=== PATIENT | male | born 1975 | race Caucasian/White ===

== ENCOUNTER 2017-01-15 10:28 | Inpatient (IN) | payer OTHER ==
[2017-01-15 11:45] VITALS: BMI 22.8
--- NOTE | 2017-01-15 13:39 | HP ---
CIWA Score - CIWA Score Nausea/Vomitin Muscle Tremors: 3 Anxiety: 3 Agitation: 3 Paroxysmal Sweats: 2 Orientation: 0-Oriented Tacttile Disturbances: 2-Mild Itch/Numbness/Burn Auditory Disturbances: 2-Mild Harshness/Frighten Visual Disturbances: 2-Mild Sensitivity Headache: 2-Mild CIWA-Ar Total Score: 22 Admission ROS BHS - HPI Chief Complaint: i need help to stop using alcohol,cocaine,heroin,mmtp 40 mgs/day,last medicated today Allergies/Adverse Reactions: Allergies Allergy/AdvReac Type Severity Reaction Status Date / Time shellfish derived Allergy Severe Difficulty Verified 02/04/16 16:30 Breathing No Known Drug Allergies Allergy Verified 02/04/16 17:07 History of Present Illness: this 41 years old male with alcohol,cocaine,heroin dependence,mmtp 40 mgs/day, last medicated today, last detox [facility] 02/10 anxiety and depression no significant period of sobriety Exam Limitations: No Limitations - Ebola screening Have you traveled outside of the country in the last 21 days: No Have you had contact with anyone from an Ebola affected area: No Have you been sick,other than usual withdrawal symptoms: No Do you have a fever: No - Review of Systems Constitutional: Chills, Diaphoresis, Loss of Appetite, Malaise, Night Sweats, Changes in sleep, Unintentional Wgt. Loss EENT: reports: Tearing, Nose Congestion Respiratory: reports: No Symptoms reported Cardiac: reports: Palpitations GI: reports: Diarrhea, Nausea, Poor Appetite, Vomiting : reports: No Symptoms Reported Musculoskeletal: reports: Back Pain, Joint Pain, Muscle Pain Integumentary: reports: Dryness Neuro: reports: Headache, Tremors Endocrine: reports: No Symptoms Reported Hematology: reports: No Symptoms Reported Psychiatric: reports: No Sypmtoms Reported, Judgement Intact, Mood/Affect Appropiate, Anxious, Depressed Patient History - Patient Medical History Hx Anemia: No Hx Asthma: No Hx Chronic Obstructive Pulmonary Disease (COPD): No Hx Cancer: No Hx Cardiac Disorders: No Hx Congestive Heart Failure: No Hx Hypertension: No Hx Hypercholesterolemia: No Hx Pacemaker: No HX Cerebrovascular Accident: No Hx Seizures: No Hx Dementia: No Hx Diabetes: No Hx Gastrointestinal Disorders: No Hx Liver Disease: No Hx Genitourinary Disorders: No Hx Sexually Transmitted Disorders: No Hx Renal Disease (ESRD): No Hx Thyroid Disease: No Hx Human Immunodeficiency Virus (HIV): No ( NEGATIVE LAST TESTED) Hx Hepatitis C: Yes Hx Depression: Yes (anxiety) Hx Suicide Attempt: No Hx Bipolar Disorder: No Hx Schizophrenia: No Other Medical History: no suicidal,no homicidal - Patient Surgical History Past Surgical History: No Hx Neurologic Surgery: No Hx Cataract Extraction: No Hx Cardiac Surgery: No Hx Lung Surgery: No Hx Breast Surgery: No Hx Breast Biopsy: No Hx Abdominal Surgery: No Hx Appendectomy: No Hx Cholecystectomy: No Hx Genitourinary Surgery: No Hx Section: No Hx Orthopedic Surgery: No Anesthesia Reaction: No - PPD History Previous Implant?: Yes Documented Results: Negative w/proof Implanted On Prior [facility] Admission?: No Date: 01/26/16 Results: 0 mm PPD to be Administered?: No - Smoking Cessation Smoking history: Current every day smoker Have you smoked in the past 12 months: Yes Aproximately how many cigarettes per day: 10 Cigars Per Day: 10 Hx Chewing Tobacco Use: No Initiated information on smoking cessation: Yes 'Breaking Loose' booklet given: 01/15/17 - Substance & Tx. History Hx Alcohol Use: Yes Hx Substance Use: Yes Substance Use Type: Alcohol, Cocaine, Opiates Hx Substance Use Treatment: Yes (02/10 [facility]) - Substances Abused Alcohol Route: Oral Frequency: Daily Amount used: 1/5th of vodka Age of first use: 14 Date of Last Use: 01/14/17 Cocaine Route: Injection Frequency: Daily Amount used: 20$ Age of first use: 19 Date of Last Use: 01/15/17 Heroin Route: Injection Frequency: Daily Amount used: 2 bags Age of first use: 17 Date of Last Use: 01/14/17 Family Disease History - Family Disease History Family History: Denies Admission Physical Exam BHS - Vital Signs Vital Signs: Vital Signs - 24 hr 01/15/17 11:39 Temperature 97.5 F L Pulse Rate 84 Respiratory 20 Rate Blood Pressure 125/74 - Physical General Appearance: Yes: Moderate Distress, Tremorous, Irritable, Sweating, Anxious HEENTM: Yes: Normal ENT Inspection, GEOFF, Pharynx Normal Respiratory: Yes: Lungs Clear, Normal Breath Sounds, No Respiratory Distress Neck: Yes: Within Normal Limits, Supple, Trachea in good position Breast: Yes: Within Normal Limits Cardiology: Yes: Within Normal Limits, Regular Rhythm, Regular Rate, S1, S2 Abdominal: Yes: Within Normal Limits, Normal Bowel Sounds, Non Tender, Flat, Soft Genitourinary: Yes: Within Normal Limits Back: Yes: Normal Inspection, Muscle Spasm Musculoskeletal: Yes: Back pain, Joint Stiffness, Muscle Pain Extremities: Yes: Within Normal Limits, Normal Range of Motion, Tremors Neurological: Yes: [employer] II-XII NML intact, Fully Oriented, Alert, Motor Strength 5/5 Integumentary: Yes: Dry Lymphatic: Yes: Within Normal Limits - Diagnostic (1) Alcohol dependence with uncomplicated withdrawal Current Visit: No Status: Chronic (2) Cocaine dependence Current Visit: No Status: Chronic Qualifiers: Substance use status: uncomplicated Qualified Code(s): F14.20 - Cocaine dependence, uncomplicated (3) Hepatitis C Current Visit: No Status: Chronic Qualifiers: Viral hepatitis chronicity: chronic Hepatic coma status: without hepatic coma Qualified Code(s): B18.2 - Chronic viral hepatitis C (4) Heroin abuse Current Visit: No Status: Chronic (5) Methadone maintenance therapy patient Current Visit: No Status: Chronic (6) Nicotine dependence Current Visit: No Status: Chronic Qualifiers: Nicotine product type: cigarettes Substance use status: uncomplicated Qualified Code(s): F17.210 - Nicotine dependence, cigarettes, uncomplicated (7) Weight loss Current Visit: Yes Status: Acute (8) Anxiety and depression Current Visit: Yes Status: Acute Cleared for Admission [facility] - Detox or Rehab [facility] Level of Care: Medically Managed Detox Regimen/Protocol: Librium [facility] Breath Alcohol Content Breath Alcohol Content: 0 Urine Drug Screen - Results Drug Screen Negative: No Urine Drug Screen Results: ARABELLA-Cocaine, OPI-Opiates, MTD-Methadone
[2017-01-15] MEDS ORDERED: MAGNESIUM HYDROX 2400MG/30ML ORAL SUSPENSION 30 ML CUP PO PRN (13:49)
[2017-01-15] MEDS ORDERED: LOPERAMIDE HCL 2 MG CAPSULE PO PRN (13:49)
[2017-01-15] MEDS ORDERED: ACETAMINOPHEN 325 MG TABLET (FP) PO PRN (13:49)
[2017-01-15] MEDS ORDERED: chlordiazePOXIDE HCL 25 MG CAPSULE PO PRN (13:49)
[2017-01-15] MEDS ORDERED: MAGNESIUM CITRATE 300 ML BOTTLE PO PRN (13:49)
[2017-01-15] MEDS ORDERED: hydrOXYzine PAMOATE 50 MG CAPSULE (FP) PO PRN (13:49)
[2017-01-15] MEDS ORDERED: IBUPROFEN 400 MG TABLET (FP) PO PRN (13:49)
[2017-01-15] MEDS ORDERED: P-EPHED 60MG/TRIPROLIDI 2.5MG TABLET PO PRN (13:49)
[2017-01-15] MEDS ORDERED: guaiFENesin/D-METHORPHAN HB 10 ML UNIT-DOSE CUPS PO PRN (13:49)
[2017-01-15] MEDS ORDERED: chlordiazePOXIDE HCL 25 MG CAPSULE PO ONE (13:49)
[2017-01-15] MEDS ORDERED: MENTHOL/PHENOL 1 EACH UD MM PRN (13:49)
[2017-01-15] MEDS: NICOTINE 21 MG/24 HOURS TOPICAL PATCH TD SCH (14:29)
[2017-01-15] MEDS: chlordiazePOXIDE HCL 25 MG CAPSULE PO SCH ×2 (17:55→22:08)
[2017-01-15 18:12] LABS: URINE APPEARANCE TURBID; URINE BILIRUBIN NEGATIVE (NEGATIVE); URINE BLOOD NEGATIVE (NEGATIVE); URINE COLOR YELLOW; URINE GLUCOSE (UA) NEGATIVE (NEGATIVE); URINE KETONE NEGATIVE (NEGATIVE); URINE LEUK ESTERASE NEGATIVE (NEGATIVE); URINE NITRITE NEGATIVE (NEGATIVE); URINE PROTEIN NEGATIVE (NEGATIVE); URINE UROBILINOGEN NEGATIVE E.U./dl (0.2-1.0)
[2017-01-15] MEDS: THIAMINE HCL 100 MG TABLET (FP) PO SCH (22:08)
[2017-01-15] MEDS: diphenhydrAMINE HCL 50 MG CAPSULE PO PRN (22:09)
[2017-01-16] MEDS: chlordiazePOXIDE HCL 25 MG CAPSULE PO SCH ×4 (06:18→22:05)
[2017-01-16] MEDS ORDERED: METHADONE HCL 40 MG DISPERSABLE TABLET PO ONE (08:30)
[2017-01-16 10:02] LABS: ALBUMIN 3.1 g/dl (3.4-5.0); ANION GAP 9 (8-16); CALCIUM 8.4 mg/dL (8.5-10.1); CO2 25 mmol/L (21-32); GLUCOSE,RANDOM 79 mg/dL (74-106)
[2017-01-16 10:08] LABS: ALK PHOS 157 U/L (45-117); BILIRUBIN,TOTAL 0.5 mg/dL (0.2-1.0); COCKROFT - GAULT 83.33; CREATININE 1.1 mg/dL (0.7-1.3); SGPT/ALT 23 U/L (12-78); TOT PROT 6.4 g/dl (6.4-8.2)
[2017-01-16] MEDS: PRENATAL VITAMINS W/ FOLIC ACID TABLET (FP) PO SCH (10:14)
[2017-01-16] MEDS: NICOTINE 21 MG/24 HOURS TOPICAL PATCH TD SCH (10:14)
[2017-01-16 10:17] LABS: SGOT/AST 28 U/L (15-37)
--- NOTE | 2017-01-16 10:30 | EKG ---
Test Reason : Blood Pressure : / mmHG Vent. Rate : 058 BPM Atrial Rate : 058 BPM P-R Int : 118 ms QRS Dur : 084 ms QT Int : 448 ms P-R-T Axes : 026 067 050 degrees QTc Int : 439 ms SINUS BRADYCARDIA OTHERWISE NORMAL ECG NO PREVIOUS ECGS AVAILABLE Confirmed by MD BREEZY, REGINALDO ([id number]) on 01/16/2017 10:30:09 AM Referred By: Confirmed By:REGINALDO TIJERINA MD
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
--- NOTE | 2017-01-16 12:39 | PN ---
S CIWA - CIWA Score Nausea/Vomitin Muscle Tremors: 4-Moderate,w/Arms Extend Anxiety: 4-Mod. Anxious/Guarded Agitation: 1-Slight > Activity Paroxysmal Sweats: 3 Orientation: 0-Oriented Tacttile Disturbances: 3-Moderate Itch/Numb/Burn Auditory Disturbances: 0-None Visual Disturbances: 2-Mild Sensitivity Headache: 0-None Present CIWA-Ar Total Score: 19 BHS Progress Note (SOAP) Subjective: Tremors, Interrupted Sleep, Lower Back Ache, Sweating, Diarrhea. Objective: PT. A & O X 3. 01/16/17 12:37 Vital Signs Temperature 97.1 F L 01/16/17 09:52 Pulse Rate 72 01/16/17 09:52 Respiratory Rate 18 01/16/17 09:52 Blood Pressure 118/83 01/16/17 09:52 O2 Sat by Pulse Oximetry (%) Laboratory Tests 01/15/17 01/16/17 01/16/17 17:00 07:15 07:15 Sodium 139 Potassium 4.7 D Chloride 105 Carbon Dioxide 25 Anion Gap 9 BUN 19 H Creatinine 1.1 Creat Clearance w eGFR > 60 Random Glucose 79 D Calcium 8.4 L Total Bilirubin 0.5 AST 28 D ALT 23 D Alkaline Phosphatase 157 H Total Protein 6.4 Albumin 3.1 L Urine Color Yellow Urine Appearance Turbid Urine pH 5.0 Ur Specific [place] 1.025 Urine Protein Negative Urine Glucose (UA) Negative Urine Ketones Negative Urine Blood Negative Urine Nitrite Negative Urine Bilirubin Negative Urine Urobilinogen Negative Ur Leukocyte Esterase Negative RPR Titer Nonreactive LABS NOTED. Assessment: 01/16/17 12:38 WITHDRAWAL SYMPTOMS. Plan: CONTINUE DETOX. INCREASE PO FLUID INTAKE.
[2017-01-16 14:07] LABS: MCH 30.4 pg (25.7-33.7); MCHC 32.6 g/dl (32.0-35.9); MEAN CELL VOLUME 93.3 fl (80-96); MEAN PLT VOLUME 8.2 fl (7.5-11.1); PLATELET COUNT 204 K/MM3 (134-434); RDW 13.7 % (11.9-15.9); WHITE BLOOD COUNT 5.6 K/mm3 (4.0-10.0)
[2017-01-16] MEDS: THIAMINE HCL 100 MG TABLET (FP) PO SCH (22:05)
[2017-01-16] MEDS: diphenhydrAMINE HCL 50 MG CAPSULE PO PRN (22:05)
[2017-01-17] MEDS: CYCLOBENZAPRINE HCL 10 MG TABLET (FP) PO PRN (05:45)
[2017-01-17] MEDS: METHADONE HCL 40 MG DISPERSABLE TABLET PO SCH (05:45)
[2017-01-17] MEDS: chlordiazePOXIDE HCL 25 MG CAPSULE PO SCH ×2 (05:45→10:14)
[2017-01-17] MEDS: PRENATAL VITAMINS W/ FOLIC ACID TABLET (FP) PO SCH (10:14)
[2017-01-17] MEDS: NICOTINE 21 MG/24 HOURS TOPICAL PATCH TD SCH (10:14)
--- NOTE | 2017-01-17 11:52 | PN ---
S CIWA - CIWA Score Nausea/Vomitin-No Nausea/No Vomiting Muscle Tremors: 4-Moderate,w/Arms Extend Anxiety: 4-Mod. Anxious/Guarded Agitation: 4-Moderately Restless Paroxysmal Sweats: 3 Orientation: 0-Oriented Tacttile Disturbances: 0-None Auditory Disturbances: 0-None Visual Disturbances: 0-None Headache: 0-None Present CIWA-Ar Total Score: 15 BHS Progress Note (SOAP) Subjective: Anxiety,tremors,sweating,interrupted sleep,restless Objective: 01/17/17 11:51 Vital Signs - 8 hr 01/17/17 01/17/17 06:23 09:55 Temperature 97.2 F L 96.4 F L Pulse Rate 79 84 Respiratory 18 18 Rate Blood Pressure 115/75 104/74 Laboratory Tests 01/15/17 01/16/17 01/16/17 17:00 07:15 07:15 WBC RBC Hgb Hct MCV MCHC RDW Plt Count MPV Sodium 139 Potassium 4.7 D Chloride 105 Carbon Dioxide 25 Anion Gap 9 BUN 19 H Creatinine 1.1 Creat Clearance w eGFR > 60 Random Glucose 79 D Calcium 8.4 L Total Bilirubin 0.5 AST 28 D ALT 23 D Alkaline Phosphatase 157 H Total Protein 6.4 Albumin 3.1 L Urine Color Yellow Urine Appearance Turbid Urine pH 5.0 Ur Specific [place] 1.025 Urine Protein Negative Urine Glucose (UA) Negative Urine Ketones Negative Urine Blood Negative Urine Nitrite Negative Urine Bilirubin Negative Urine Urobilinogen Negative Ur Leukocyte Esterase Negative RPR Titer Nonreactive 01/16/17 09:12 WBC 5.6 D RBC 4.74 Hgb 14.4 Hct 44.2 MCV 93.3 MCHC 32.6 RDW 13.7 Plt Count 204 MPV 8.2 Sodium Potassium Chloride Carbon Dioxide Anion Gap BUN Creatinine Creat Clearance w eGFR Random Glucose Calcium Total Bilirubin AST ALT Alkaline Phosphatase Total Protein Albumin Urine Color Urine Appearance Urine pH Ur Specific [place] Urine Protein Urine Glucose (UA) Urine Ketones Urine Blood Urine Nitrite Urine Bilirubin Urine Urobilinogen Ur Leukocyte Esterase RPR Titer labs noted Assessment: 01/17/17 11:51 Withdrawal sx. Plan: Continue detox
[2017-01-17] MEDS: chlordiazePOXIDE 5 MG CAPSULE PO SCH ×2 (16:58→22:04)
[2017-01-17] MEDS: MAG HYDROX/AL HYDROX/SIMETH 30 ML UNIT-DOSE CUP PO PRN (20:22)
[2017-01-17] MEDS: THIAMINE HCL 100 MG TABLET (FP) PO SCH (22:04)
[2017-01-17] MEDS: diphenhydrAMINE HCL 50 MG CAPSULE PO PRN (22:04)
[2017-01-18] MEDS: MAG HYDROX/AL HYDROX/SIMETH 30 ML UNIT-DOSE CUP PO PRN (02:56)
[2017-01-18] MEDS: METHADONE HCL 40 MG DISPERSABLE TABLET PO SCH (05:30)
[2017-01-18] MEDS: chlordiazePOXIDE 5 MG CAPSULE PO SCH ×2 (05:30→10:10)
[2017-01-18] MEDS: CYCLOBENZAPRINE HCL 10 MG TABLET (FP) PO PRN (05:30)
[2017-01-18] MEDS: PRENATAL VITAMINS W/ FOLIC ACID TABLET (FP) PO SCH (10:10)
[2017-01-18] MEDS: NICOTINE 21 MG/24 HOURS TOPICAL PATCH TD SCH (10:11)
--- NOTE | 2017-01-18 10:59 | PN ---
BHS Progress Note (SOAP) Subjective: ANXIETY,SWEATS. Objective: 01/18/17 10:59 Vital Signs Temperature 96.0 F L 01/18/17 09:31 Pulse Rate 80 01/18/17 09:31 Respiratory Rate 20 01/18/17 09:31 Blood Pressure 118/82 01/18/17 09:31 O2 Sat by Pulse Oximetry (%) Assessment: 01/18/17 10:59 WITHDRAWAL SX Plan: CONTINUE DETOX
[2017-01-18] MEDS: chlordiazePOXIDE HCL 10 MG CAPSULE PO SCH ×2 (16:57→22:05)
[2017-01-18] MEDS: THIAMINE HCL 100 MG TABLET (FP) PO SCH (22:05)
[2017-01-18] MEDS: diphenhydrAMINE HCL 50 MG CAPSULE PO PRN (22:05)
[2017-01-19] MEDS: MAG HYDROX/AL HYDROX/SIMETH 30 ML UNIT-DOSE CUP PO PRN (02:58)
[2017-01-19] MEDS: METHADONE HCL 40 MG DISPERSABLE TABLET PO SCH (05:33)
[2017-01-19] MEDS: chlordiazePOXIDE HCL 10 MG CAPSULE PO SCH (05:33)
[2017-01-19] MEDS: CYCLOBENZAPRINE HCL 10 MG TABLET (FP) PO PRN (05:33)
--- NOTE | 2017-01-19 09:12 | DS ---
[facility] Detox Discharge Summary Admission Date: 01/15/17 Discharge Date: 01/19/17 - History Present History: Alcohol Dependence, MMTP Additional Comments: DETOX COMPLETED. ALERT O X 3. NAD. Pertinent Past History: HEP C - Physical Exam Results Vital Signs: Vital Signs Temperature 97.0 F L 01/19/17 06:23 Pulse Rate 74 01/19/17 06:23 Respiratory Rate 16 01/19/17 06:23 Blood Pressure 105/72 01/19/17 06:23 O2 Sat by Pulse Oximetry (%) Pertinent Admission Physical Exam Findings: WITHDRAWAL SX Laboratory Last Values WBC 5.6 K/mm3 (4.0-10.0) D 01/16/17 09:12 RBC 4.74 M/mm3 (4.00-5.60) 01/16/17 09:12 Hgb 14.4 GM/dL (11.7-16.9) 01/16/17 09:12 Hct 44.2 % (35.4-49) 01/16/17 09:12 MCV 93.3 fl (80-96) 01/16/17 09:12 MCHC 32.6 g/dl (32.0-35.9) 01/16/17 09:12 RDW 13.7 % (11.9-15.9) 01/16/17 09:12 Plt Count 204 K/MM3 (134-434) 01/16/17 09:12 MPV 8.2 fl (7.5-11.1) 01/16/17 09:12 Sodium 139 mmol/L (136-145) 01/16/17 07:15 Potassium 4.7 mmol/L (3.5-5.1) D 01/16/17 07:15 Chloride 105 mmol/L (98-107) 01/16/17 07:15 Carbon Dioxide 25 mmol/L (21-32) 01/16/17 07:15 Anion Gap 9 (8-16) 01/16/17 07:15 BUN 19 mg/dL (7-18) H 01/16/17 07:15 Creatinine 1.1 mg/dL (0.7-1.3) 01/16/17 07:15 Creat Clearance w eGFR > 60 (>60) 01/16/17 07:15 Random Glucose 79 mg/dL (74-106) D 01/16/17 07:15 Calcium 8.4 mg/dL (8.5-10.1) L 01/16/17 07:15 Total Bilirubin 0.5 mg/dL (0.2-1.0) 01/16/17 07:15 AST 28 U/L (15-37) D 01/16/17 07:15 ALT 23 U/L (12-78) D 01/16/17 07:15 Alkaline Phosphatase 157 U/L (45-117) H 01/16/17 07:15 Total Protein 6.4 g/dl (6.4-8.2) 01/16/17 07:15 Albumin 3.1 g/dl (3.4-5.0) L 01/16/17 07:15 Urine Color Yellow 01/15/17 17:00 Urine Appearance Turbid 01/15/17 17:00 Urine pH 5.0 (5.0-8.0) 01/15/17 17:00 Ur Specific [place] 1.025 (1.005-1.025) 01/15/17 17:00 Urine Protein Negative (NEGATIVE) 01/15/17 17:00 Urine Glucose (UA) Negative (NEGATIVE) 01/15/17 17:00 Urine Ketones Negative (NEGATIVE) 01/15/17 17:00 Urine Blood Negative (NEGATIVE) 01/15/17 17:00 Urine Nitrite Negative (NEGATIVE) 01/15/17 17:00 Urine Bilirubin Negative (NEGATIVE) 01/15/17 17:00 Urine Urobilinogen Negative E.U./dl (0.2-1.0) 01/15/17 17:00 Ur Leukocyte Esterase Negative (NEGATIVE) 01/15/17 17:00 RPR Titer Nonreactive (NONREACTIVE) 01/16/17 07:15 - Treatment Hospital Course: Detox Protocol Followed, Detoxed Safely, Responded well, Discharged Condition Good - Medication Discharge Medications: Ambulatory Orders Trazodone HCl [Desyrel -] 50 mg PO HS #30 tablet 02/18/16 - Diagnosis (1) Alcohol dependence with uncomplicated withdrawal Current Visit: Yes Status: Acute (2) Hepatitis C Current Visit: Yes Status: Chronic Qualifiers: Viral hepatitis chronicity: chronic Hepatic coma status: without hepatic coma Qualified Code(s): B18.2 - Chronic viral hepatitis C (3) Methadone maintenance therapy patient Current Visit: Yes Status: Chronic (4) Nicotine dependence Current Visit: Yes Status: Acute Qualifiers: Nicotine product type: cigarettes Substance use status: in withdrawal Qualified Code(s): F17.213 - Nicotine dependence, cigarettes, with withdrawal (5) Substance induced mood disorder Current Visit: Yes Status: Acute (6) Substance-induced sleep disorder Current Visit: Yes Status: Acute - AMA Did Patient Leave Against Medical Advice: No
[2017-01-19 09:25] VITALS: BP 113/75; PULSE 77; TEMP 97.5
== END 2017-01-19 09:06 | disposition home or self-care (01) | DRG 773 ==
LOC: YASAS 10:28 → Y3N 13:32
PROVIDERS: ADMIT Internal Medicine; ATTEND Internal Medicine
PROC: HZ2ZZZZ Detoxification Services for Substance Abuse Treatment (ICD-10-PCS; principal; 2017-01-15)
DX: F10.230 Alcohol dependence with withdrawal, uncomplicated (principal); F11.20 Opioid dependence, uncomplicated; F17.213 Nicotine dependence, cigarettes, with withdrawal; F19.24 Other psychoactive substance dependence with psychoactive substance-induced mood disorder; F19.282 Other psychoactive substance dependence with psychoactive substance-induced sleep disorder; F41.8 Other specified anxiety disorders; B18.2 Chronic viral hepatitis C; H11.31 Conjunctival hemorrhage, right eye; Z87.898 Personal history of other specified conditions; Z59.0 Homelessness
CPT/HCPCS: 36415; 80053; 81003; 85027; 86593; 93005; 93010

== ENCOUNTER 2018-05-17 14:17 | Inpatient (IN) | payer OTHER ==
[2018-05-17 15:46] VITALS: BMI 26.4
--- NOTE | 2018-05-17 17:29 | HP ---
COWS - Scale Resting Pulse: 0= CO 80 or Below Sweatin=Flushed/Facial Moisture Restless Observation: 1= Difficult to Sit Still Pupil Size: 1= Pupils >than Normal Bone or Joint Aches: 1= Mild Discomfort Runny Nose/ Eye Tearin= Runny Nose/Eyes GI Upset > 30mins: 1= Stomach Cramp Tremor Observation: 1= Tremor [place], Not Seen Yawning Observation: 1= 1-2x During Session Anxiety or Irritability: 2=Irritable/Anxious Goose Flesh Skin: 0=Smooth Skin COWS Score: 12 CIWA Score - CIWA Score Nausea/Vomitin-No Nausea/No Vomiting Muscle Tremors: 2 Anxiety: 3 Agitation: 2 Paroxysmal Sweats: 2 Orientation: 0-Oriented Tacttile Disturbances: 2-Mild Itch/Numbness/Burn Auditory Disturbances: 0-None Visual Disturbances: 0-None Headache: 1-Very Mild CIWA-Ar Total Score: 12 Admission ROS S - HPI Chief Complaint: alcohol and opioid withdrawal symptoms Allergies/Adverse Reactions: Allergies Allergy/AdvReac Type Severity Reaction Status Date / Time shellfish derived Allergy Severe Difficulty Verified 05/17/18 16:47 Breathing No Known Drug Allergies Allergy Verified 05/17/18 16:47 History of Present Illness: 43 yo male with hx of nicotine, heroin (IV), alcohol and cocaine dependence. Last detox 2.5 months ago at [facility]. Longest period of sobriety 33 years. Reports was Suboxone therapy 2.5 months ago, and relapsed. PMHX: anxiety and depression. Denies hx of seizures, blackouts or overdose. Exam Limitations: No Limitations - Ebola screening Have you traveled outside of the country in the last 21 days: No Have you had contact with anyone from an Ebola affected area: No Have you been sick,other than usual withdrawal symptoms: No Do you have a fever: No - Review of Systems Constitutional: Chills, Changes in sleep, Weakness EENT: reports: Nose Congestion Respiratory: reports: No Symptoms reported Cardiac: reports: No Symptoms Reported GI: reports: Poor Appetite, Poor Fluid Intake, Indigestion : reports: No Symptoms Reported Musculoskeletal: reports: Other (bilateral foot pain) Integumentary: reports: No Symptoms Reported Neuro: reports: Numbness (left leg) Endocrine: reports: Increased Thirst Hematology: reports: No Symptoms Reported Psychiatric: reports: Orientated x3, Depressed Other Systems: Reviewed and Negative Patient History - Patient Medical History Hx Anemia: No Hx Asthma: No Hx Chronic Obstructive Pulmonary Disease (COPD): No Hx Cancer: No Hx Cardiac Disorders: No Hx Congestive Heart Failure: No Hx Hypertension: No Hx Hypercholesterolemia: No Hx Pacemaker: No HX Cerebrovascular Accident: No Hx Seizures: No Hx Dementia: No Hx Diabetes: No Hx Gastrointestinal Disorders: No Hx Liver Disease: No Hx Genitourinary Disorders: No Hx Sexually Transmitted Disorders: No Hx Renal Disease (ESRD): No Hx Thyroid Disease: No Hx Human Immunodeficiency Virus (HIV): No (0 NEGATIVE LAST TESTED) Hx Hepatitis C: Yes Hx Depression: Yes (anxiety) Hx Suicide Attempt: No Hx Bipolar Disorder: No Hx Schizophrenia: No - Patient Surgical History Past Surgical History: No Hx Neurologic Surgery: No Hx Cataract Extraction: No Hx Cardiac Surgery: No Hx Lung Surgery: No Hx Breast Surgery: No Hx Breast Biopsy: No Hx Abdominal Surgery: No Hx Appendectomy: No Hx Cholecystectomy: No Hx Genitourinary Surgery: No Hx Section: No Hx Orthopedic Surgery: No Anesthesia Reaction: No - PPD History Previous Implant?: Yes Documented Results: Negative w/proof Date: 01/26/16 Results: 0 mm PPD to be Administered?: Yes - Smoking Cessation Smoking history: Current every day smoker Have you smoked in the past 12 months: Yes Aproximately how many cigarettes per day: 20 Cigars Per Day: 10 Hx Chewing Tobacco Use: No Initiated information on smoking cessation: Yes 'Breaking Loose' booklet given: 05/17/18 - Substance & Tx. History Hx Alcohol Use: Yes Hx Substance Use: Yes Substance Use Type: Alcohol, Cocaine, Heroin Hx Substance Use Treatment: Yes (Last detox 2.5 months ago at [facility]) - Substances Abused Alcohol Route: Oral Frequency: Daily Amount used: LIOQUOR- 2 PINTS, BEER-2 SIX PACK Age of first use: 14 Date of Last Use: 05/16/18 Heroin Route: Injection Frequency: Daily Amount used: 10 BAGS Age of first use: 17 Date of Last Use: 05/16/18 Cocaine Route: Injection Frequency: Daily Amount used: 3 - 5 bags Age of first use: 19 Date of Last Use: 05/17/18 Family Disease History - Family Disease History Family Disease History: Diabetes: Mother Admission Physical Exam [facility] - Vital Signs Vital Signs: Vital Signs - 24 hr 05/17/18 15:43 Temperature 97.6 F Pulse Rate 63 Respiratory 18 Rate Blood Pressure 122/79 - Physical General Appearance: Yes: Appropriately Dressed, Mild Distress, Sweating, Anxious HEENTM: Yes: EOMI, Hearing grossly Normal, Normal ENT Inspection, Normocephalic , Normal Voice, GEOFF, Pharynx Normal, Tm's normal Respiratory: Yes: Chest Non-Tender, Lungs Clear, Normal Breath Sounds, No Respiratory Distress, No Accessory Muscle Use Neck: Yes: Within Normal Limits Breast: Yes: Breast Exam Deferred Cardiology: Yes: Regular Rhythm, Regular Rate Abdominal: Yes: Normal Bowel Sounds, Non Tender, Flat, Soft Genitourinary: Yes: Within Normal Limits Back: Yes: Normal Inspection Musculoskeletal: Yes: full range of Motion, Gait Steady, Pelvis Stable Extremities: Yes: Normal Capillary Refill, Normal Inspection, Normal Range of Motion, Non-Tender Neurological: Yes: emery grinder II-XII NML intact, Fully Oriented, Alert, Motor Strength 5/5, Depressed Affect Integumentary: Yes: Normal Color, Warm, Diaphoresis, Track [place] (bilateral forearms, right neck, no infection present) Lymphatic: Yes: Within Normal Limits - Diagnostic (1) Opioid dependence with withdrawal Current Visit: Yes Status: Acute (2) Alcohol dependence with uncomplicated withdrawal Current Visit: Yes Status: Acute (3) Nicotine dependence Current Visit: Yes Status: Acute Qualifiers: Nicotine product type: cigarettes Substance use status: in withdrawal Qualified Code(s): F17.213 - Nicotine dependence, cigarettes, with withdrawal (4) Cocaine dependence Current Visit: Yes Status: Chronic Qualifiers: Substance use status: uncomplicated Qualified Code(s): F14.20 - Cocaine dependence, uncomplicated Cleared for Admission [facility] - Detox or Rehab [facility] Level of Care: Medically Managed Detox Regimen/Protocol: Methadone/Librium [facility] Breath Alcohol Content Breath Alcohol Content: 0 Urine Drug Screen - Results Drug Screen Negative: No Urine Drug Screen Results: ARABELLA-Cocaine, OPI-Opiates, MDMA-Ecstasy, BAR- Barbiturates, FEN-Fentanyl
[2018-05-17] MEDS ORDERED: chlordiazePOXIDE HCL 25 MG CAPSULE PO PRN (17:35)
[2018-05-17] MEDS ORDERED: IBUPROFEN 400 MG TABLET (FP) PO PRN (17:35)
[2018-05-17] MEDS ORDERED: MENTHOL/PHENOL 1 EACH UD MM PRN (17:35)
[2018-05-17] MEDS ORDERED: MAGNESIUM HYDROX 2400MG/30ML ORAL SUSPENSION 30 ML CUP PO PRN (17:35)
[2018-05-17] MEDS ORDERED: guaiFENesin/D-METHORPHAN HB 10 ML UNIT-DOSE CUPS PO PRN (17:35)
[2018-05-17] MEDS ORDERED: LOPERAMIDE HCL 2 MG CAPSULE PO PRN (17:35)
[2018-05-17] MEDS ORDERED: ACETAMINOPHEN 325 MG TABLET (FP) PO PRN (17:35)
[2018-05-17] MEDS ORDERED: MAGNESIUM CITRATE 300 ML BOTTLE PO PRN (17:35)
[2018-05-17] MEDS ORDERED: P-EPHED 60MG/TRIPROLIDI 2.5MG TABLET PO PRN (17:35)
[2018-05-17] MEDS ORDERED: NICOTINE POLACRILEX 2 MG GUM BC PRN (17:35)
[2018-05-17] MEDS ORDERED: METHADONE HCL 10 MG TABLET (FOR DETOX USE ONLY) PO ONE ×2 (19:00→23:00)
[2018-05-17] MEDS ORDERED: chlordiazePOXIDE HCL 25 MG CAPSULE PO ONE (19:00)
[2018-05-17] MEDS ORDERED: METHADONE HCL 10 MG TABLET ONE (21:57)
[2018-05-17] MEDS ORDERED: MELATONIN 5 MG TABLETS PO PRN (22:00)
[2018-05-17] MEDS: THIAMINE HCL 100 MG TABLET (FP) PO SCH (22:57)
[2018-05-17] MEDS: chlordiazePOXIDE HCL 25 MG CAPSULE PO SCH (22:57)
[2018-05-18] MEDS: chlordiazePOXIDE HCL 25 MG CAPSULE PO SCH ×4 (05:38→22:13)
--- NOTE | 2018-05-18 08:01 | EKG ---
Test Reason : Blood Pressure : / mmHG Vent. Rate : 073 BPM Atrial Rate : 073 BPM P-R Int : 128 ms QRS Dur : 086 ms QT Int : 390 ms P-R-T Axes : 036 063 048 degrees QTc Int : 429 ms NORMAL SINUS RHYTHM NORMAL ECG WHEN COMPARED WITH ECG OF 15-JAN-2017 13:40, NO SIGNIFICANT CHANGE WAS FOUND Confirmed by SEVEN CORRIGAN MD ([id number]) on 05/18/2018 8:00:47 AM Referred By: Confirmed By:SEVEN CORRIGAN MD
[2018-05-18] MEDS ORDERED: METHADONE HCL 10 MG TABLET (FOR DETOX USE ONLY) PO SCH (10:00)
[2018-05-18] MEDS: NICOTINE 21 MG/24 HOURS TOPICAL PATCH TD SCH (10:13)
[2018-05-18] MEDS: PRENATAL VITAMINS W/ FOLIC ACID TABLET (FP) PO SCH (10:13)
[2018-05-18 10:15] LABS: HEMATOCRIT 39.9 % (35.4-49); HEMOGLOBIN 13.3 GM/dL (11.7-16.9); MCH 30.8 pg (25.7-33.7); MCHC 33.4 g/dl (32.0-35.9); MEAN CELL VOLUME 92.2 fl (80-96); MEAN PLT VOLUME 8.1 fl (7.5-11.1); PLATELET COUNT 176 K/MM3 (134-434); RBC 4.33 M/mm3 (4.00-5.60); RDW 13.6 % (11.9-15.9); WHITE BLOOD COUNT 3.9 K/mm3 (4.0-10.0)
[2018-05-18 10:51] LABS: ALBUMIN 3.1 g/dl (3.4-5.0); ALK PHOS 97 U/L (45-117); ANION GAP 10 MMOL/L (8-16); BILIRUBIN,TOTAL 0.5 mg/dL (0.2-1); BLOOD UREA NITROGEN 14 mg/dL (7-18); CALCIUM 8.6 mg/dL (8.5-10.1); CHLORIDE 106 mmol/L (98-107); CO2 26 mmol/L (21-32); CREATININE 0.9 mg/dL (0.55-1.3); GLUCOSE,RANDOM 105 mg/dL (74-106); POTASSIUM 3.5 mmol/L (3.5-5.1); SGOT/AST 32 U/L (15-37); SGPT/ALT 43 U/L (13-61); SODIUM 142 mmol/L (136-145)
--- NOTE | 2018-05-18 13:45 | PN ---
[facility] CIWA - CIWA Score Nausea/Vomitin-No Nausea/No Vomiting Muscle Tremors: 3 Anxiety: 4-Mod. Anxious/Guarded Agitation: 3 Paroxysmal Sweats: 1-Minimal Palms Moist Orientation: 0-Oriented Tacttile Disturbances: 0-None Auditory Disturbances: 0-None Visual Disturbances: 0-None Headache: 0-None Present CIWA-Ar Total Score: 11 S COWS - Scale Resting Pulse: 0= [place] 80 or Below Sweatin= Chills/Flushing Restless Observation: 3= Extraneous Movement Pupil Size: 0= Normal to Room Light Bone or Joint Aches: 1= Mild Discomfort Runny Nose/ Eye Tearin= None GI Upset > 30mins: 0= None Tremor Observation of Outstretched Hands: 2= Slight Tremor Visible Yawning Observation: 1= 1-2x During Session Anxiety or Irritability: 2=Irritable/Anxious Goose Flesh Skin: 0=Smooth Skin COWS Score: 10 [facility] Progress Note (SOAP) Subjective: ANXIETY,CHILLS, FATIGUE, INTERMITTENT SLEEP. Objective: 05/18/18 13:44 Vital Signs 05/18/18 05/18/18 06:19 10:15 Temperature 97.4 F L 97.6 F Pulse Rate 58 L 52 L Respiratory 18 18 Rate Blood Pressure 94/60 100/60 Laboratory Tests 05/18/18 05/18/18 07:00 07:00 WBC 3.9 L RBC 4.33 Hgb 13.3 Hct 39.9 MCV 92.2 MCH 30.8 MCHC 33.4 RDW 13.6 Plt Count 176 MPV 8.1 Sodium 142 Potassium 3.5 Chloride 106 Carbon Dioxide 26 Anion Gap 10 BUN 14 Creatinine 0.9 Creat Clearance w eGFR > 60 Random Glucose 105 Calcium 8.6 Total Bilirubin 0.5 AST 32 ALT 43 Alkaline Phosphatase 97 Total Protein 6.0 L Albumin 3.1 L Assessment: 05/18/18 13:44 WITHDRAWAL SX Plan: CONTINUE DETOX INCREASE PO FLUIDS
--- NOTE | 2018-05-18 13:46 | CONSULT ---
[facility] Psychiatric Consult - Data Date of interview: 05/18/18 Admission source: [facility] Identifying data: Readmission to [facility] for this 43 y/o male self- referred for detoxification treatment (alcohol,heroin,cocaine dependence.Admitted to [address] [place] [address].Patient is single,a father of two,homeless, currently unemployed and supported on odd jobs. Substance Abuse History: Confirmed by patient in this interview.Details in current [facility] report : Smoking history: Current every day smoker. Have you smoked in the past 12 months: Yes. Aproximately how many cigarettes per day: 20. Cigars Per Day: 10. Hx Chewing Tobacco Use: No. Initiated information on smoking cessation: Yes. 'Breaking Loose' booklet given: 05/17/18. - Substance & Tx. History. Hx Alcohol Use: Yes. Hx Substance Use: Yes. Substance Use Type : Alcohol, Cocaine, Heroin. Hx Substance Use Treatment: Yes (Last detox 2.5 months ago at [facility].). - Substances Abused. Alcohol. Route: Oral. Frequency: Daily. Amount used: LIOQUOR- 2 PINTS, BEER-2 SIX PACK. Age of first use: 14. Date of Last Use: 05/16/18. Heroin. Route: Injection. Frequency: Daily. Amount used: 10 BAGS. Age of first use: 17. Date of Last Use: 05/16/18. Cocaine. Route: Injection. Frequency: Daily. Amount used: 3 - 5 bags. Age of first use: 19. Date of Last Use: 05/17/18 Medical History: Hepatitis C. Psychiatric History: No reported history of psychiatric hospitalizations.Did use wellbutrin in the past for smoking cessation.Patient endorses a history of anxiety but he never addressed the issue with mental health professionals.Mr Armenta denies history of suicide attempts. Physical/Sexual Abuse/Trauma History: Patient denies. Additional Comment: Urine Drug Screen Results: ARABELLA-Cocaine, OPI-Opiates, MDMA- Ecstasy, BAR-Barbiturates, FEN-Fentanyl.Noted. Mental Status Exam - Mental Status Exam Alert and Oriented to: Time, Place, Person Cognitive Function: Good Patient Appearance: Well Groomed Mood: Nervous, Anxious, Hopeful Affect: Mood Congruent Patient Behavior: Fatigued, Appropriate, Cooperative Speech Pattern: Clear Voice Loudness: Normal Thought Process: Intact, Goal Oriented Thought Disorder: Not Present Hallucinations: Denies Suicidal Ideation: Denies Homicidal Ideation: Denies Insight/Judgement: Poor Sleep: Poorly, Difficulty falling asleep Appetite: Good Muscle strength/Tone: Normal Gait/Station: Normal Psychiatric Findings - Problem List ([place] 1, 2,3) (1) Alcohol dependence with uncomplicated withdrawal Current Visit: Yes Status: Acute (2) Nicotine dependence Current Visit: Yes Status: Acute Qualifiers: Nicotine product type: cigarettes Substance use status: in withdrawal Qualified Code(s): F17.213 - Nicotine dependence, cigarettes, with withdrawal (3) Opioid dependence with withdrawal Current Visit: Yes Status: Acute (4) Cocaine dependence Current Visit: Yes Status: Acute Qualifiers: Substance use status: uncomplicated Qualified Code(s): F14.20 - Cocaine dependence, uncomplicated (5) Substance induced mood disorder Current Visit: Yes Status: Acute (6) Insomnia Current Visit: Yes Status: Acute - Initial Treatment Plan Initial Treatment Plan: Psychoeducation.Sleep hygiene.Detoxification in progress.Group therapy.AA/NA meetings.Insomnia is addressed with zolpidem 10 mg po hs prn.patient is made aware of potential for parasomnias.Agrees to careplan.Observation.
[2018-05-18] MEDS: THIAMINE HCL 100 MG TABLET (FP) PO SCH (22:11)
[2018-05-18] MEDS: ZOLPIDEM TARTRATE 10 MG TABLET (PARK CARE ONLY) PO PRN (22:13)
[2018-05-19] MEDS: chlordiazePOXIDE HCL 25 MG CAPSULE PO SCH ×3 (06:00→17:17)
[2018-05-19] MEDS: PRENATAL VITAMINS W/ FOLIC ACID TABLET (FP) PO SCH (10:09)
[2018-05-19] MEDS: NICOTINE 21 MG/24 HOURS TOPICAL PATCH TD SCH (10:09)
[2018-05-19] MEDS: METHADONE HCL 5 MG TABLET (FOR DETOX USE ONLY) PO SCH (10:09)
--- NOTE | 2018-05-19 10:56 | PN ---
[facility] CIWA - CIWA Score Nausea/Vomitin-No Nausea/No Vomiting Muscle Tremors: 3 Anxiety: 4-Mod. Anxious/Guarded Agitation: 4-Moderately Restless Paroxysmal Sweats: 1-Minimal Palms Moist Orientation: 0-Oriented Tacttile Disturbances: 0-None Auditory Disturbances: 0-None Visual Disturbances: 0-None Headache: 0-None Present CIWA-Ar Total Score: 12 S COWS - Scale Resting Pulse: 0= [place] 80 or Below Sweatin= Chills/Flushing Restless Observation: 3= Extraneous Movement Pupil Size: 0= Normal to Room Light Bone or Joint Aches: 1= Mild Discomfort Runny Nose/ Eye Tearin= None GI Upset > 30mins: 0= None Tremor Observation of Outstretched Hands: 0= None Yawning Observation: 1= 1-2x During Session Anxiety or Irritability: 2=Irritable/Anxious Goose Flesh Skin: 0=Smooth Skin COWS Score: 8 S Progress Note (SOAP) Subjective: ANXIETY, SWEATS, TREMORS, INTERMITTENT SLEEP. Objective: 05/19/18 10:56 Vital Signs 05/19/18 05/19/18 06:03 09:12 Temperature 98.7 F 96.4 F L Pulse Rate 73 63 Respiratory 18 18 Rate Blood Pressure 101/61 101/68 Laboratory Tests 05/18/18 05/18/18 05/18/18 07:00 07:00 07:00 WBC 3.9 L RBC 4.33 Hgb 13.3 Hct 39.9 MCV 92.2 MCH 30.8 MCHC 33.4 RDW 13.6 Plt Count 176 MPV 8.1 Sodium 142 Potassium 3.5 Chloride 106 Carbon Dioxide 26 Anion Gap 10 BUN 14 Creatinine 0.9 Creat Clearance w eGFR > 60 Random Glucose 105 Calcium 8.6 Total Bilirubin 0.5 AST 32 ALT 43 Alkaline Phosphatase 97 Total Protein 6.0 L Albumin 3.1 L RPR Titer HIV 1&2 Antibody Screen Negative HIV P24 Antigen Negative 05/18/18 07:00 WBC RBC Hgb Hct MCV MCH MCHC RDW Plt Count MPV Sodium Potassium Chloride Carbon Dioxide Anion Gap BUN Creatinine Creat Clearance w eGFR Random Glucose Calcium Total Bilirubin AST ALT Alkaline Phosphatase Total Protein Albumin RPR Titer Nonreactive HIV 1&2 Antibody Screen HIV P24 Antigen Assessment: 09/22/18 10:56 WITHDRAWAL SX Plan: CONTINUE DETOX
[2018-05-19] MEDS: MAG HYDROX/AL HYDROX/SIMETH 30 ML UNIT-DOSE CUP PO PRN (15:06)
[2018-05-19] MEDS: chlordiazePOXIDE 5 MG CAPSULE PO SCH (22:20)
[2018-05-19] MEDS: ZOLPIDEM TARTRATE 10 MG TABLET (PARK CARE ONLY) PO PRN (22:20)
[2018-05-19] MEDS: THIAMINE HCL 100 MG TABLET (FP) PO SCH (22:20)
[2018-05-20] MEDS: chlordiazePOXIDE 5 MG CAPSULE PO SCH ×3 (05:12→17:32)
[2018-05-20] MEDS: METHADONE HCL 5 MG TABLET (FOR DETOX USE ONLY) PO SCH (10:18)
[2018-05-20] MEDS: NICOTINE 21 MG/24 HOURS TOPICAL PATCH TD SCH (10:18)
[2018-05-20] MEDS: PRENATAL VITAMINS W/ FOLIC ACID TABLET (FP) PO SCH (10:20)
--- NOTE | 2018-05-20 15:04 | PN ---
[facility] Progress Note (SOAP) Subjective: Chills, yawning, sweating, backache, interrupted sleep Objective: 05/20/18 15:02 Last Vital Signs Temp Pulse Resp BP Pulse Ox 97.2 F L 81 18 123/78 05/20/18 13:18 05/20/18 13:18 05/20/18 13:18 05/20/18 13:18 Laboratory Tests 05/18/18 05/18/18 05/18/18 07:00 07:00 07:00 WBC 3.9 L RBC 4.33 Hgb 13.3 Hct 39.9 MCV 92.2 MCH 30.8 MCHC 33.4 RDW 13.6 Plt Count 176 MPV 8.1 Sodium 142 Potassium 3.5 Chloride 106 Carbon Dioxide 26 Anion Gap 10 BUN 14 Creatinine 0.9 Creat Clearance w eGFR > 60 Random Glucose 105 Calcium 8.6 Total Bilirubin 0.5 AST 32 ALT 43 Alkaline Phosphatase 97 Total Protein 6.0 L Albumin 3.1 L RPR Titer HIV 1&2 Antibody Screen Negative HIV P24 Antigen Negative 05/18/18 07:00 WBC RBC Hgb Hct MCV MCH MCHC RDW Plt Count MPV Sodium Potassium Chloride Carbon Dioxide Anion Gap BUN Creatinine Creat Clearance w eGFR Random Glucose Calcium Total Bilirubin AST ALT Alkaline Phosphatase Total Protein Albumin RPR Titer Nonreactive HIV 1&2 Antibody Screen HIV P24 Antigen Labs reviewed Assessment: 05/20/18 15:04 Withdrawal symptoms Plan: Continue detox
[2018-05-20] MEDS: THIAMINE HCL 100 MG TABLET (FP) PO SCH (21:54)
[2018-05-20] MEDS: chlordiazePOXIDE HCL 10 MG CAPSULE PO SCH (22:00)
[2018-05-20] MEDS: ZOLPIDEM TARTRATE 10 MG TABLET (PARK CARE ONLY) PO PRN (22:00)
[2018-05-21] MEDS: MAG HYDROX/AL HYDROX/SIMETH 30 ML UNIT-DOSE CUP PO PRN (01:57)
[2018-05-21] MEDS: chlordiazePOXIDE HCL 10 MG CAPSULE PO SCH ×2 (06:04→10:09)
[2018-05-21] MEDS ORDERED: METHADONE HCL 5 MG TABLET (FOR DETOX USE ONLY) PO ONE (09:40)
[2018-05-21 09:54] VITALS: BP 105/64; PULSE 61; TEMP 97
[2018-05-21] MEDS: NICOTINE 21 MG/24 HOURS TOPICAL PATCH TD SCH (09:57)
[2018-05-21] MEDS: PRENATAL VITAMINS W/ FOLIC ACID TABLET (FP) PO SCH (09:57)
[2018-05-21] MEDS ORDERED: METHADONE HCL 10 MG TABLET (FOR DETOX USE ONLY) PO SCH (10:00)
--- NOTE | 2018-05-21 10:41 | DS ---
[facility] Detox Discharge Summary Admission Date: 05/17/18 Discharge Date: 05/21/18 - History Present History: Alcohol Dependence, Cocaine Dependence, Opioid Dependence Additional Comments: Patient was for discharge tomorrow. As per patient, he wants to leave today so that he can get his clothes and return to see if he will get a rehab bed today. Patient c/o diarrhea and stated that he can take imodium for it and it's not a big problem. Part Time Flexible Clerk encouraged patient to stay until tomorrow but he refused. Patient agreed to adjust detox protocol (methadone decreased from 10mg to 5mg as per patient's request). He is encouraged to drink lots of water to prevent dehydration. Patient verbalized understanding. Pertinent Past History: Hepatitis C - Physical Exam Results Vital Signs: Vital Signs Temperature 97 F L 05/21/18 09:54 Pulse Rate 61 05/21/18 09:54 Respiratory Rate 18 05/21/18 09:54 Blood Pressure 105/64 05/21/18 09:54 O2 Sat by Pulse Oximetry (%) Pertinent Admission Physical Exam Findings: Withdrawal symptoms Laboratory Tests 05/18/18 05/18/18 05/18/18 07:00 07:00 07:00 WBC 3.9 L RBC 4.33 Hgb 13.3 Hct 39.9 MCV 92.2 MCH 30.8 MCHC 33.4 RDW 13.6 Plt Count 176 MPV 8.1 Sodium 142 Potassium 3.5 Chloride 106 Carbon Dioxide 26 Anion Gap 10 BUN 14 Creatinine 0.9 Creat Clearance w eGFR > 60 Random Glucose 105 Calcium 8.6 Total Bilirubin 0.5 AST 32 ALT 43 Alkaline Phosphatase 97 Total Protein 6.0 L Albumin 3.1 L RPR Titer HIV 1&2 Antibody Screen Negative HIV P24 Antigen Negative 05/18/18 07:00 WBC RBC Hgb Hct MCV MCH MCHC RDW Plt Count MPV Sodium Potassium Chloride Carbon Dioxide Anion Gap BUN Creatinine Creat Clearance w eGFR Random Glucose Calcium Total Bilirubin AST ALT Alkaline Phosphatase Total Protein Albumin RPR Titer Nonreactive HIV 1&2 Antibody Screen HIV P24 Antigen Labs reviewed - Treatment Hospital Course: Detox Protocol Followed, Detoxed Safely, Responded well, Discharged Condition Good - Medication Discharge Medications: Ambulatory Orders NK [No Known Home Medication] 05/17/18 - Diagnosis (1) Alcohol dependence with uncomplicated withdrawal Current Visit: Yes Status: Acute (2) Cocaine dependence Current Visit: Yes Status: Chronic Qualifiers: Substance use status: uncomplicated Qualified Code(s): F14.20 - Cocaine dependence, uncomplicated (3) Nicotine dependence Current Visit: Yes Status: Chronic Qualifiers: Nicotine product type: cigarettes Substance use status: in withdrawal Qualified Code(s): F17.213 - Nicotine dependence, cigarettes, with withdrawal (4) Opioid dependence with withdrawal Current Visit: Yes Status: Acute (5) Hepatitis C Current Visit: No Status: Chronic Qualifiers: Viral hepatitis chronicity: chronic Hepatic coma status: without hepatic coma Qualified Code(s): B18.2 - Chronic viral hepatitis C - AMA Did Patient Leave Against Medical Advice: No (F/U with your PCP within 1-2 weeks )
[2018-05-22] MEDS ORDERED: METHADONE HCL 5 MG TABLET (FOR DETOX USE ONLY) PO SCH (06:00)
== END 2018-05-21 10:10 | disposition home or self-care (01) | DRG 773 ==
LOC: YASAS 14:17 → Y3N 18:29
PROC: HZ2ZZZZ Detoxification Services for Substance Abuse Treatment (ICD-10-PCS; principal; 2018-05-17)
DX: F11.23 Opioid dependence with withdrawal (principal); F10.230 Alcohol dependence with withdrawal, uncomplicated; F14.20 Cocaine dependence, uncomplicated; F19.24 Other psychoactive substance dependence with psychoactive substance-induced mood disorder; F41.8 Other specified anxiety disorders; G47.00 Insomnia, unspecified; R63.4 Abnormal weight loss; Z68.26 Body mass index [BMI] 26.0-26.9, adult; Z91.013 Allergy to seafood; Z59.0 Homelessness
CPT/HCPCS: 36415; 80053; 85027; 86593; 87389; 93005; 93010

== ENCOUNTER 2021-03-10 15:30 | Inpatient (IN) | payer SELFPAY ==
[2021-03-10] MEDS ORDERED: MAGNESIUM HYDROX 2400MG/30ML ORAL SUSPENSION 30 ML CUP PO PRN (20:41)
[2021-03-10] MEDS ORDERED: MAG HYDROX/AL HYDROX/SIMETH 30 ML UNIT-DOSE CUP PO PRN (20:41)
[2021-03-10] MEDS ORDERED: guaiFENesin 200 MG/10 ML 10 ML UNIT-DOSE CUPS PO PRN (20:41)
[2021-03-10] MEDS ORDERED: P-EPHED 60MG/TRIPROLIDI 2.5MG TABLET PO PRN (20:41)
[2021-03-10] MEDS ORDERED: ACETAMINOPHEN 325 MG TABLET (FP) PO PRN (20:41)
[2021-03-10] MEDS ORDERED: IBUPROFEN 400 MG TABLET (FP) PO PRN (20:41)
[2021-03-10] MEDS ORDERED: MAGNESIUM CITRATE 300 ML BOTTLE PO PRN (20:41)
[2021-03-10] MEDS ORDERED: NICOTINE POLACRILEX 2 MG GUM BC PRN (20:41)
[2021-03-10] MEDS ORDERED: LOPERAMIDE HCL 2 MG CAPSULE PO PRN (20:41)
[2021-03-10] MEDS ORDERED: THIAMINE HCL 100 MG TABLET (FP) PO SCH (22:00)
[2021-03-10] MEDS ORDERED: MELATONIN 5 MG TABLETS PO SCH (22:00)
[2021-03-10 23:03] VITALS: PULSE 84; BMI 27.8
[2021-03-11] MEDS ORDERED: TUBERCULIN PPD 5 TU/0.1ML VIAL ID ONE (04:10)
[2021-03-11 07:08] VITALS: BP 108/76; TEMP 97.2
[2021-03-11] MEDS ORDERED: NICOTINE 14 MG/24 HOURS TOPICAL PATCH TD SCH (10:00)
[2021-03-11] MEDS ORDERED: PRENATAL VITAMINS W/ FOLIC ACID TABLET (FP) PO SCH (10:00)
[2021-03-11 13:25] LABS: HEMATOCRIT 41.2 % (35.4-49); HEMOGLOBIN 13.8 GM/dL (11.7-16.9); MCH 31.7 pg (25.7-33.7); MCHC 33.5 g/dl (32.0-35.9); MEAN CELL VOLUME 94.7 fl (80-96); MEAN PLT VOLUME 9.1 fl (7.5-11.1); PLATELET COUNT 245 10^3/uL (134-434); RBC 4.35 M/mm3 (4.00-5.60); RDW 13.3 % (11.9-15.9); WHITE BLOOD COUNT 5.2 K/mm3 (4.0-10.0)
[2021-03-11 13:34] LABS: ALBUMIN 3.3 g/dl (3.4-5.0); BLOOD UREA NITROGEN 20.2 mg/dL (7-18)
[2021-03-11 13:35] LABS: CALCIUM 8.8 mg/dL (8.5-10.1)
[2021-03-11 13:38] LABS: CREATININE 1.1 mg/dL (0.55-1.3)
[2021-03-11 13:39] LABS: BILIRUBIN,TOTAL 0.9 mg/dL (0.2-1)
[2021-03-11 13:40] LABS: TOT PROT 6.4 g/dl (6.4-8.2)
== END 2021-03-11 13:15 | disposition home or self-care (01) | DRG 772 ==
LOC: YASAS 15:30 → Y5N 03-11 03:26
PROVIDERS: ADMIT Allergy & Immunology; ATTEND Allergy & Immunology
PROC: HZ42ZZZ Group Counseling for Substance Abuse Treatment, Cognitive-Behavioral (ICD-10-PCS; principal; 2021-03-11)
DX: F11.20 Opioid dependence, uncomplicated (principal); F14.20 Cocaine dependence, uncomplicated; F17.210 Nicotine dependence, cigarettes, uncomplicated; B18.2 Chronic viral hepatitis C; Z56.0 Unemployment, unspecified; Z59.0 Homelessness
CPT/HCPCS: 36415; 80053; 85027; 86780

== ENCOUNTER 2023-05-11 22:46 | Inpatient (IN) | payer OTHER ==
[2023-05-11 23:37] VITALS: BMI 26.3
[2023-05-12] MEDS ORDERED: POLYETHYLENE GLYCOL (HEALTHYLAX) 3350 17 GM PACKET PO PRN (00:59)
[2023-05-12] MEDS ORDERED: LOPERAMIDE HCL 2 MG CAPSULE PO PRN (00:59)
[2023-05-12] MEDS ORDERED: guaiFENesin 600 MG TABLET.ER (FP) PO PRN (00:59)
[2023-05-12] MEDS ORDERED: IBUPROFEN 600 MG TABLET (FP) PO PRN (00:59)
[2023-05-12] MEDS ORDERED: BENZONATATE 200 MG CAPSULE PO PRN (00:59)
[2023-05-12] MEDS ORDERED: NALOXONE HCL 0.4 MG/ML VIAL IM PRN (00:59)
[2023-05-12] MEDS ORDERED: IBUPROFEN 400 MG TABLET (FP) PO PRN (00:59)
[2023-05-12] MEDS ORDERED: BISMUTH SUBSALICYLATE 524 MG/30 ML PO PRN (00:59)
[2023-05-12] MEDS ORDERED: ACETAMINOPHEN 325 MG TABLET (FP) PO PRN (00:59)
[2023-05-12] MEDS ORDERED: MAGNESIUM HYDROX 2400MG/30ML ORAL SUSPENSION 30 ML CUP PO PRN (00:59)
[2023-05-12] MEDS ORDERED: BENZOCAINE/MENTHOL (CHLORASEPTIC ) LOZENGE MM PRN (00:59)
[2023-05-12] MEDS ORDERED: METHOCARBAMOL 500 MG TABLET PO PRN (00:59)
[2023-05-12] MEDS ORDERED: DICYCLOMINE HCL 10 MG CAPSULE PO PRN (00:59)
[2023-05-12] MEDS ORDERED: ONDANSETRON *ODT* 4 MG TABLET SL PRN (00:59)
[2023-05-12] MEDS ORDERED: NALOXONE HCL (KLOXXADO) 8 MG SPRAY NS PRN (00:59)
[2023-05-12] MEDS ORDERED: chlordiazePOXIDE HCL 25 MG CAPSULE PO PRN (01:09)
[2023-05-12] MEDS ORDERED: chlordiazePOXIDE HCL 25 MG CAPSULE ONE ×2 (05:57→09:56)
[2023-05-12] MEDS: chlordiazePOXIDE HCL 25 MG CAPSULE PO SCH ×4 (05:58→22:30)
[2023-05-12] MEDS ORDERED: PRENATAL VITAMINS W/ FOLIC ACID TABLET (FP) PO ONE (09:57)
[2023-05-12] MEDS ORDERED: NICOTINE 14 MG/24 HOURS TOPICAL PATCH TD ONE (09:57)
[2023-05-12] MEDS: PRENATAL VITAMINS W/ FOLIC ACID TABLET (FP) PO SCH (10:00)
[2023-05-12] MEDS: NICOTINE 14 MG/24 HOURS TOPICAL PATCH TD SCH (10:00)
[2023-05-12] MEDS ORDERED: methaDONE HCL 40 MG DISPERSABLE TABLET PO ONE (10:09)
[2023-05-12] MEDS ORDERED: methaDONE HCL 10 MG TABLET (FOR DETOX USE ONLY) ONE (10:19)
[2023-05-12] MEDS ORDERED: methaDONE HCL 10 MG TABLET PO ONE (10:30)
[2023-05-12] MEDS: MELATONIN 5 MG TABLETS PO SCH (22:30)
[2023-05-12] MEDS: THIAMINE HCL 100 MG TABLET (FP) PO SCH (22:30)
[2023-05-12] MEDS: traZODone HCL 50 MG TABLET (FP) PO SCH (22:30)
[2023-05-13] MEDS: chlordiazePOXIDE HCL 25 MG CAPSULE PO SCH ×4 (05:25→22:26)
[2023-05-13] MEDS ORDERED: methaDONE HCL 10 MG TABLET PO SCH (06:00)
[2023-05-13] MEDS ORDERED: methaDONE 40 MG, methaDONE 10 MG PO SCH (06:30)
[2023-05-13 09:21] LABS: POTASSIUM 3.3 mmol/L (3.5-5.1)
[2023-05-13 09:23] LABS: ALBUMIN 3.8 g/dl (3.4-5.0); BLOOD UREA NITROGEN 58.4 mg/dL (7-18); CALCIUM 8.6 mg/dL (8.5-10.1)
[2023-05-13 09:25] LABS: HEMATOCRIT 40.9 % (35.4-49); HEMOGLOBIN 13.9 GM/dL (11.7-16.9); MCH 31.3 pg (25.7-33.7); MEAN CELL VOLUME 91.9 fl (80-96); MEAN PLT VOLUME 9.4 fl (7.5-11.1); PLATELET COUNT 284 10^3/uL (134-434); RBC 4.45 M/mm3 (4.00-5.60); RDW 13.2 % (11.9-15.9); WHITE BLOOD COUNT 4.8 K/mm3 (4.0-10.0)
[2023-05-13 09:26] LABS: CREATININE 1.9 mg/dL (0.55-1.3)
[2023-05-13 09:28] LABS: BILIRUBIN,TOTAL 0.2 mg/dL (0.2-1); TOT PROT 7.4 g/dl (6.4-8.2)
[2023-05-13] MEDS: PRENATAL VITAMINS W/ FOLIC ACID TABLET (FP) PO SCH (10:28)
[2023-05-13] MEDS: NICOTINE 14 MG/24 HOURS TOPICAL PATCH TD SCH (10:29)
[2023-05-13] MEDS ORDERED: POTASSIUM CHLORIDE ORAL LIQUID 20 MEQ/15 ML PO ONE (11:10)
[2023-05-13] MEDS: MAG HYDROX/AL HYDROX/SIMETH 30 ML UNIT-DOSE CUP PO PRN (18:45)
[2023-05-13] MEDS: traZODone HCL 50 MG TABLET (FP) PO SCH (22:26)
[2023-05-13] MEDS: THIAMINE HCL 100 MG TABLET (FP) PO SCH (22:26)
[2023-05-13] MEDS: MELATONIN 5 MG TABLETS PO SCH (22:26)
[2023-05-14] MEDS ORDERED: chlordiazePOXIDE HCL 10 MG CAPSULE PO PRN
[2023-05-14] MEDS: chlordiazePOXIDE HCL 10 MG CAPSULE PO SCH ×4 (05:39→22:26)
[2023-05-14] MEDS ORDERED: methaDONE 40 MG, methaDONE 20 MG PO ONE (06:00)
[2023-05-14] MEDS ORDERED: methaDONE HCL 10 MG TABLET PO ONE (10:00)
[2023-05-14] MEDS: NICOTINE 14 MG/24 HOURS TOPICAL PATCH TD SCH (10:48)
[2023-05-14] MEDS: PRENATAL VITAMINS W/ FOLIC ACID TABLET (FP) PO SCH (10:48)
[2023-05-14] MEDS: MAG HYDROX/AL HYDROX/SIMETH 30 ML UNIT-DOSE CUP PO PRN (15:20)
[2023-05-14] MEDS: NICOTINE POLACRILEX 2 MG GUM BUC PRN ×2 (17:30→22:26)
[2023-05-14] MEDS: hydrOXYzine PAMOATE 25 MG CAPSULE (FP) PO PRN (22:26)
[2023-05-14] MEDS: MELATONIN 5 MG TABLETS PO SCH (22:26)
[2023-05-14] MEDS: THIAMINE HCL 100 MG TABLET (FP) PO SCH (22:26)
[2023-05-14] MEDS: traZODone HCL 50 MG TABLET (FP) PO SCH (22:26)
[2023-05-15] MEDS: chlordiazePOXIDE HCL 10 MG CAPSULE PO SCH ×2 (05:36→17:17)
[2023-05-15] MEDS ORDERED: methaDONE 40 MG, methaDONE 30 MG PO ONE (06:00)
[2023-05-15] MEDS ORDERED: methaDONE HCL 10 MG TABLET PO ONE (10:00)
[2023-05-15] MEDS: PRENATAL VITAMINS W/ FOLIC ACID TABLET (FP) PO SCH (10:33)
[2023-05-15] MEDS: NICOTINE 14 MG/24 HOURS TOPICAL PATCH TD SCH (10:33)
[2023-05-15 12:22] LABS: POTASSIUM 4.4 mmol/L (3.5-5.1)
[2023-05-15 12:25] LABS: CALCIUM 8.3 mg/dL (8.5-10.1)
[2023-05-15 12:28] LABS: CREATININE 0.9 mg/dL (0.55-1.3)
[2023-05-15 12:29] LABS: BLOOD UREA NITROGEN 10.9 mg/dL (7-18)
[2023-05-15] MEDS: NICOTINE POLACRILEX 2 MG GUM BUC PRN (16:38)
[2023-05-15] MEDS: MAG HYDROX/AL HYDROX/SIMETH 30 ML UNIT-DOSE CUP PO PRN (17:18)
[2023-05-15] MEDS ORDERED: traZODone HCL 100 MG TABLET (FP) PO SCH (22:00)
[2023-05-15] MEDS: THIAMINE HCL 100 MG TABLET (FP) PO SCH (22:12)
[2023-05-15] MEDS: MELATONIN 5 MG TABLETS PO SCH (22:12)
[2023-05-15] MEDS: hydrOXYzine PAMOATE 25 MG CAPSULE (FP) PO PRN (22:13)
[2023-05-16] MEDS ORDERED: chlordiazePOXIDE HCL 10 MG CAPSULE PO ONE (05:00)
[2023-05-16] MEDS ORDERED: methaDONE HCL 40 MG DISPERSABLE TABLET PO ONE (06:00)
[2023-05-16] MEDS: MAG HYDROX/AL HYDROX/SIMETH 30 ML UNIT-DOSE CUP PO PRN (06:35)
[2023-05-16 09:43] VITALS: BP 107/66; PULSE 73; RESP 20; TEMP 98.7
[2023-05-16] MEDS: PRENATAL VITAMINS W/ FOLIC ACID TABLET (FP) PO SCH (10:09)
[2023-05-16] MEDS: NICOTINE 14 MG/24 HOURS TOPICAL PATCH TD SCH (10:09)
[2023-05-16] MEDS ORDERED: traZODone HCL 50 MG TABLET (FP) PO SCH (22:00)
[2023-05-16] MEDS ORDERED: GABAPENTIN 300 MG CAPSULE PO SCH (22:00)
[2023-05-17] MEDS ORDERED: methaDONE 80 MG, methaDONE 10 MG PO ONE (06:00)
[2023-05-17] MEDS ORDERED: methaDONE HCL 10 MG TABLET PO ONE (10:00)
== END 2023-05-16 12:20 | disposition other institution (70) | DRG 773 ==
LOC: YASAS 22:46 → Y3N 05-12 12:18
PROVIDERS: ADMIT Allergy & Immunology; ATTEND Surgery
PROC: HZ2ZZZZ Detoxification Services for Substance Abuse Treatment (ICD-10-PCS; principal; 2023-05-12)
DX: F10.230 Alcohol dependence with withdrawal, uncomplicated (principal); F11.20 Opioid dependence, uncomplicated; F14.20 Cocaine dependence, uncomplicated; F17.210 Nicotine dependence, cigarettes, uncomplicated; F19.24 Other psychoactive substance dependence with psychoactive substance-induced mood disorder; F41.8 Other specified anxiety disorders; E87.6 Hypokalemia; G47.00 Insomnia, unspecified; R79.89 Other specified abnormal findings of blood chemistry
CPT/HCPCS: 36415; 80048; 80053; 82962; 85027; 86780; 87635; 87811; 93005; 93010

== ENCOUNTER 2023-05-16 12:25 | Inpatient (IN) | payer OTHER ==
[2023-05-16] MEDS ORDERED: POLYETHYLENE GLYCOL (HEALTHYLAX) 3350 17 GM PACKET PO PRN (13:05)
[2023-05-16] MEDS ORDERED: hydrOXYzine PAMOATE 25 MG CAPSULE (FP) PO PRN (13:05)
[2023-05-16] MEDS ORDERED: BENZONATATE 200 MG CAPSULE PO PRN (13:05)
[2023-05-16] MEDS ORDERED: AMMONIUM LACTATE 12% LOTION 225 GM BOTTLE TP PRN (13:05)
[2023-05-16] MEDS ORDERED: IBUPROFEN 600 MG TABLET (FP) PO PRN (13:05)
[2023-05-16] MEDS ORDERED: ACETAMINOPHEN 325 MG TABLET (FP) PO PRN (13:05)
[2023-05-16] MEDS ORDERED: IBUPROFEN 400 MG TABLET (FP) PO PRN (13:05)
[2023-05-16] MEDS ORDERED: MAGNESIUM HYDROX 2400MG/30ML ORAL SUSPENSION 30 ML CUP PO PRN (13:05)
[2023-05-16] MEDS ORDERED: NALOXONE HCL 0.4 MG/ML VIAL IVPUSH PRN (13:05)
[2023-05-16] MEDS ORDERED: BENZOCAINE/MENTHOL (CHLORASEPTIC ) LOZENGE MM PRN (13:05)
[2023-05-16] MEDS ORDERED: LOPERAMIDE HCL 2 MG CAPSULE PO PRN (13:05)
[2023-05-16] MEDS ORDERED: NALOXONE HCL (KLOXXADO) 8 MG SPRAY NS PRN (13:05)
[2023-05-16] MEDS ORDERED: NICOTINE 14 MG/24 HOURS TOPICAL PATCH TD PRN (13:05)
[2023-05-16] MEDS ORDERED: guaiFENesin 600 MG TABLET.ER (FP) PO PRN (13:05)
[2023-05-16] MEDS ORDERED: METHOCARBAMOL 500 MG TABLET PO PRN (13:05)
[2023-05-16] MEDS: traZODone HCL 100 MG TABLET (FP) PO SCH (21:30)
[2023-05-16] MEDS: GABAPENTIN 300 MG CAPSULE PO SCH (21:30)
[2023-05-16] MEDS: THIAMINE HCL 100 MG TABLET (FP) PO SCH (21:30)
[2023-05-16] MEDS: MELATONIN 5 MG TABLETS PO SCH (21:30)
[2023-05-16] MEDS: MAG HYDROX/AL HYDROX/SIMETH 30 ML UNIT-DOSE CUP PO PRN (21:31)
[2023-05-17] MEDS ORDERED: methaDONE HCL 10 MG TABLET PO SCH (06:00)
[2023-05-17] MEDS: methaDONE 80 MG, methaDONE 10 MG PO SCH (06:29)
[2023-05-17] MEDS: GABAPENTIN 300 MG CAPSULE PO SCH ×3 (06:29→21:10)
[2023-05-17] MEDS: PRENATAL VITAMINS W/ FOLIC ACID TABLET (FP) PO SCH (09:34)
[2023-05-17] MEDS: traZODone HCL 100 MG TABLET (FP) PO SCH (21:10)
[2023-05-17] MEDS: busPIRone HCL 10 MG TABLET (FP) PO SCH (21:10)
[2023-05-17] MEDS: THIAMINE HCL 100 MG TABLET (FP) PO SCH (21:10)
[2023-05-17] MEDS: hydrOXYzine PAMOATE 25 MG CAPSULE (FP) PO PRN (21:11)
[2023-05-17] MEDS: MELATONIN 5 MG TABLETS PO SCH (21:12)
[2023-05-18] MEDS: methaDONE 80 MG, methaDONE 10 MG PO SCH (06:16)
[2023-05-18] MEDS: GABAPENTIN 300 MG CAPSULE PO SCH ×3 (06:18→21:08)
[2023-05-18] MEDS: busPIRone HCL 10 MG TABLET (FP) PO SCH ×2 (10:24→21:08)
[2023-05-18] MEDS: PRENATAL VITAMINS W/ FOLIC ACID TABLET (FP) PO SCH (10:24)
[2023-05-18] MEDS: hydrOXYzine PAMOATE 25 MG CAPSULE (FP) PO PRN (10:25)
[2023-05-18] MEDS: PANTOPRAZOLE 20 MG TABLET PO SCH (16:28)
[2023-05-18] MEDS: MELATONIN 5 MG TABLETS PO SCH (21:08)
[2023-05-18] MEDS: THIAMINE HCL 100 MG TABLET (FP) PO SCH (21:08)
[2023-05-18] MEDS: traZODone HCL 100 MG TABLET (FP) PO SCH (21:08)
[2023-05-19] MEDS: methaDONE 80 MG, methaDONE 10 MG PO SCH (06:29)
[2023-05-19] MEDS: GABAPENTIN 300 MG CAPSULE PO SCH ×3 (06:30→21:11)
[2023-05-19] MEDS: PANTOPRAZOLE 20 MG TABLET PO SCH (10:05)
[2023-05-19] MEDS: hydrOXYzine PAMOATE 25 MG CAPSULE (FP) PO PRN (10:05)
[2023-05-19] MEDS: busPIRone HCL 10 MG TABLET (FP) PO SCH ×2 (10:05→21:11)
[2023-05-19] MEDS: PRENATAL VITAMINS W/ FOLIC ACID TABLET (FP) PO SCH (10:05)
[2023-05-19] MEDS: MAG HYDROX/AL HYDROX/SIMETH 30 ML UNIT-DOSE CUP PO PRN (15:09)
[2023-05-19] MEDS: NICOTINE POLACRILEX 2 MG GUM BUC PRN ×2 (17:27→21:12)
[2023-05-19] MEDS: THIAMINE HCL 100 MG TABLET (FP) PO SCH (21:11)
[2023-05-19] MEDS: MELATONIN 5 MG TABLETS PO SCH (21:12)
[2023-05-19] MEDS: traZODone HCL 100 MG TABLET (FP) PO SCH (21:12)
[2023-05-20] MEDS: GABAPENTIN 300 MG CAPSULE PO SCH ×3 (06:34→21:10)
[2023-05-20] MEDS: methaDONE 80 MG, methaDONE 10 MG PO SCH (06:34)
[2023-05-20] MEDS: NICOTINE POLACRILEX 2 MG GUM BUC PRN ×4 (06:38→21:11)
[2023-05-20] MEDS: busPIRone HCL 10 MG TABLET (FP) PO SCH ×2 (09:37→21:10)
[2023-05-20] MEDS: PANTOPRAZOLE 20 MG TABLET PO SCH (09:37)
[2023-05-20] MEDS: PRENATAL VITAMINS W/ FOLIC ACID TABLET (FP) PO SCH (09:37)
[2023-05-20] MEDS: hydrOXYzine PAMOATE 25 MG CAPSULE (FP) PO PRN (09:37)
[2023-05-20] MEDS: traZODone HCL 100 MG TABLET (FP) PO SCH (21:10)
[2023-05-20] MEDS: THIAMINE HCL 100 MG TABLET (FP) PO SCH (21:10)
[2023-05-20] MEDS: MELATONIN 5 MG TABLETS PO SCH (21:10)
[2023-05-21] MEDS: GABAPENTIN 300 MG CAPSULE PO SCH ×3 (06:34→21:29)
[2023-05-21] MEDS: methaDONE 80 MG, methaDONE 10 MG PO SCH (06:35)
[2023-05-21] MEDS: NICOTINE POLACRILEX 2 MG GUM BUC PRN ×3 (06:37→21:29)
[2023-05-21] MEDS: busPIRone HCL 10 MG TABLET (FP) PO SCH ×2 (09:39→21:29)
[2023-05-21] MEDS: PRENATAL VITAMINS W/ FOLIC ACID TABLET (FP) PO SCH (09:39)
[2023-05-21] MEDS: PANTOPRAZOLE 20 MG TABLET PO SCH (09:39)
[2023-05-21] MEDS: THIAMINE HCL 100 MG TABLET (FP) PO SCH (21:29)
[2023-05-21] MEDS: traZODone HCL 100 MG TABLET (FP) PO SCH (21:29)
[2023-05-21] MEDS: MELATONIN 5 MG TABLETS PO SCH (21:29)
[2023-05-22] MEDS: methaDONE 80 MG, methaDONE 10 MG PO SCH (06:28)
[2023-05-22] MEDS: NICOTINE POLACRILEX 2 MG GUM BUC PRN ×5 (06:30→21:27)
[2023-05-22] MEDS: GABAPENTIN 300 MG CAPSULE PO SCH ×3 (06:30→21:27)
[2023-05-22] MEDS: PRENATAL VITAMINS W/ FOLIC ACID TABLET (FP) PO SCH (09:15)
[2023-05-22] MEDS: busPIRone HCL 10 MG TABLET (FP) PO SCH ×2 (09:15→21:27)
[2023-05-22] MEDS: PANTOPRAZOLE 20 MG TABLET PO SCH (09:15)
[2023-05-22] MEDS: MAG HYDROX/AL HYDROX/SIMETH 30 ML UNIT-DOSE CUP PO PRN (14:56)
[2023-05-22] MEDS: MELATONIN 5 MG TABLETS PO SCH (21:27)
[2023-05-22] MEDS: THIAMINE HCL 100 MG TABLET (FP) PO SCH (21:27)
[2023-05-22] MEDS: traZODone HCL 100 MG TABLET (FP) PO SCH (21:27)
[2023-05-23] MEDS: methaDONE 80 MG, methaDONE 10 MG PO SCH (06:22)
[2023-05-23] MEDS: GABAPENTIN 300 MG CAPSULE PO SCH ×3 (06:23→21:02)
[2023-05-23] MEDS: NICOTINE POLACRILEX 2 MG GUM BUC PRN ×4 (09:59→21:03)
[2023-05-23] MEDS: PRENATAL VITAMINS W/ FOLIC ACID TABLET (FP) PO SCH (09:59)
[2023-05-23] MEDS: busPIRone HCL 10 MG TABLET (FP) PO SCH ×2 (09:59→21:02)
[2023-05-23] MEDS: PANTOPRAZOLE 20 MG TABLET PO SCH (09:59)
[2023-05-23] MEDS: THIAMINE HCL 100 MG TABLET (FP) PO SCH (21:02)
[2023-05-23] MEDS: MELATONIN 5 MG TABLETS PO SCH (21:02)
[2023-05-23] MEDS: traZODone HCL 100 MG TABLET (FP) PO SCH (21:02)
[2023-05-24] MEDS: GABAPENTIN 300 MG CAPSULE PO SCH ×3 (06:13→21:06)
[2023-05-24] MEDS: methaDONE 80 MG, methaDONE 10 MG PO SCH (06:13)
[2023-05-24] MEDS: PANTOPRAZOLE 20 MG TABLET PO SCH (09:41)
[2023-05-24] MEDS: busPIRone HCL 10 MG TABLET (FP) PO SCH ×2 (09:41→21:06)
[2023-05-24] MEDS: PRENATAL VITAMINS W/ FOLIC ACID TABLET (FP) PO SCH (09:42)
[2023-05-24] MEDS: hydrOXYzine PAMOATE 25 MG CAPSULE (FP) PO PRN (09:42)
[2023-05-24] MEDS: NICOTINE POLACRILEX 2 MG GUM BUC PRN ×3 (09:43→21:06)
[2023-05-24] MEDS: MELATONIN 5 MG TABLETS PO SCH (21:05)
[2023-05-24] MEDS: THIAMINE HCL 100 MG TABLET (FP) PO SCH (21:06)
[2023-05-24] MEDS: traZODone HCL 100 MG TABLET (FP) PO SCH (21:06)
[2023-05-25] MEDS: GABAPENTIN 300 MG CAPSULE PO SCH ×3 (06:39→21:11)
[2023-05-25] MEDS: methaDONE 80 MG, methaDONE 10 MG PO SCH (06:39)
[2023-05-25] MEDS: busPIRone HCL 10 MG TABLET (FP) PO SCH ×2 (10:03→21:11)
[2023-05-25] MEDS: PANTOPRAZOLE 20 MG TABLET PO SCH (10:03)
[2023-05-25] MEDS: PRENATAL VITAMINS W/ FOLIC ACID TABLET (FP) PO SCH (10:03)
[2023-05-25] MEDS: NICOTINE POLACRILEX 2 MG GUM BUC PRN ×2 (10:04→13:21)
[2023-05-25] MEDS: THIAMINE HCL 100 MG TABLET (FP) PO SCH (21:10)
[2023-05-25] MEDS: MELATONIN 5 MG TABLETS PO SCH (21:11)
[2023-05-25] MEDS: traZODone HCL 100 MG TABLET (FP) PO SCH (21:11)
[2023-05-26] MEDS: GABAPENTIN 300 MG CAPSULE PO SCH ×3 (06:27→21:12)
[2023-05-26] MEDS: methaDONE 80 MG, methaDONE 10 MG PO SCH (06:27)
[2023-05-26] MEDS: PRENATAL VITAMINS W/ FOLIC ACID TABLET (FP) PO SCH (09:41)
[2023-05-26] MEDS: hydrOXYzine PAMOATE 25 MG CAPSULE (FP) PO PRN (09:41)
[2023-05-26] MEDS: busPIRone HCL 10 MG TABLET (FP) PO SCH ×2 (09:41→21:12)
[2023-05-26] MEDS: PANTOPRAZOLE 20 MG TABLET PO SCH (09:41)
[2023-05-26] MEDS: NICOTINE POLACRILEX 2 MG GUM BUC PRN ×4 (09:42→21:13)
[2023-05-26] MEDS: MELATONIN 5 MG TABLETS PO SCH (21:12)
[2023-05-26] MEDS: traZODone HCL 100 MG TABLET (FP) PO SCH (21:12)
[2023-05-26] MEDS: THIAMINE HCL 100 MG TABLET (FP) PO SCH (21:12)
[2023-05-27] MEDS: methaDONE 80 MG, methaDONE 10 MG PO SCH (06:21)
[2023-05-27] MEDS: GABAPENTIN 300 MG CAPSULE PO SCH ×3 (06:21→21:28)
[2023-05-27] MEDS: PRENATAL VITAMINS W/ FOLIC ACID TABLET (FP) PO SCH (09:20)
[2023-05-27] MEDS: busPIRone HCL 10 MG TABLET (FP) PO SCH ×2 (09:21→21:28)
[2023-05-27] MEDS: PANTOPRAZOLE 20 MG TABLET PO SCH (09:21)
[2023-05-27] MEDS: hydrOXYzine PAMOATE 25 MG CAPSULE (FP) PO PRN ×2 (09:22→22:30)
[2023-05-27] MEDS: NICOTINE POLACRILEX 2 MG GUM BUC PRN ×4 (09:22→21:29)
[2023-05-27] MEDS: traZODone HCL 100 MG TABLET (FP) PO SCH (21:28)
[2023-05-27] MEDS: THIAMINE HCL 100 MG TABLET (FP) PO SCH (21:28)
[2023-05-27] MEDS: MELATONIN 5 MG TABLETS PO SCH (21:28)
[2023-05-28] MEDS: GABAPENTIN 300 MG CAPSULE PO SCH ×3 (06:24→21:16)
[2023-05-28] MEDS: methaDONE 80 MG, methaDONE 10 MG PO SCH (06:24)
[2023-05-28] MEDS: NICOTINE POLACRILEX 2 MG GUM BUC PRN ×4 (06:25→21:17)
[2023-05-28] MEDS: busPIRone HCL 10 MG TABLET (FP) PO SCH ×2 (09:22→21:16)
[2023-05-28] MEDS: PRENATAL VITAMINS W/ FOLIC ACID TABLET (FP) PO SCH (09:22)
[2023-05-28] MEDS: PANTOPRAZOLE 20 MG TABLET PO SCH (09:22)
[2023-05-28] MEDS: THIAMINE HCL 100 MG TABLET (FP) PO SCH (21:16)
[2023-05-28] MEDS: traZODone HCL 100 MG TABLET (FP) PO SCH (21:16)
[2023-05-28] MEDS: MELATONIN 5 MG TABLETS PO SCH (21:16)
[2023-05-28] MEDS: hydrOXYzine PAMOATE 25 MG CAPSULE (FP) PO PRN (21:17)
[2023-05-29] MEDS: methaDONE 80 MG, methaDONE 10 MG PO SCH (05:57)
[2023-05-29] MEDS: GABAPENTIN 300 MG CAPSULE PO SCH ×3 (05:57→21:18)
[2023-05-29] MEDS: NICOTINE POLACRILEX 2 MG GUM BUC PRN ×5 (05:58→21:19)
[2023-05-29] MEDS: busPIRone HCL 10 MG TABLET (FP) PO SCH ×2 (09:13→21:18)
[2023-05-29] MEDS: PRENATAL VITAMINS W/ FOLIC ACID TABLET (FP) PO SCH (09:13)
[2023-05-29] MEDS: PANTOPRAZOLE 20 MG TABLET PO SCH (09:14)
[2023-05-29] MEDS: THIAMINE HCL 100 MG TABLET (FP) PO SCH (21:18)
[2023-05-29] MEDS: traZODone HCL 100 MG TABLET (FP) PO SCH (21:18)
[2023-05-29] MEDS: MELATONIN 5 MG TABLETS PO SCH (21:18)
[2023-05-30] MEDS: methaDONE 80 MG, methaDONE 10 MG PO SCH (06:08)
[2023-05-30] MEDS: GABAPENTIN 300 MG CAPSULE PO SCH ×3 (06:08→21:10)
[2023-05-30] MEDS: PRENATAL VITAMINS W/ FOLIC ACID TABLET (FP) PO SCH (09:35)
[2023-05-30] MEDS: busPIRone HCL 10 MG TABLET (FP) PO SCH ×2 (09:35→21:10)
[2023-05-30] MEDS: PANTOPRAZOLE 20 MG TABLET PO SCH (09:35)
[2023-05-30] MEDS: NICOTINE POLACRILEX 2 MG GUM BUC PRN ×3 (09:35→16:37)
[2023-05-30] MEDS: hydrOXYzine PAMOATE 25 MG CAPSULE (FP) PO PRN (21:10)
[2023-05-30] MEDS: MELATONIN 5 MG TABLETS PO SCH (21:10)
[2023-05-30] MEDS: THIAMINE HCL 100 MG TABLET (FP) PO SCH (21:10)
[2023-05-30] MEDS: traZODone HCL 100 MG TABLET (FP) PO SCH (21:10)
[2023-05-31] MEDS: methaDONE 80 MG, methaDONE 10 MG PO SCH (06:04)
[2023-05-31] MEDS: GABAPENTIN 300 MG CAPSULE PO SCH ×3 (06:04→21:14)
[2023-05-31] MEDS: busPIRone HCL 10 MG TABLET (FP) PO SCH ×2 (09:23→21:14)
[2023-05-31] MEDS: PRENATAL VITAMINS W/ FOLIC ACID TABLET (FP) PO SCH (09:23)
[2023-05-31] MEDS: PANTOPRAZOLE 20 MG TABLET PO SCH (09:24)
[2023-05-31] MEDS: NICOTINE POLACRILEX 2 MG GUM BUC PRN ×3 (11:36→21:14)
[2023-05-31] MEDS: hydrOXYzine PAMOATE 25 MG CAPSULE (FP) PO PRN (21:14)
[2023-05-31] MEDS: MELATONIN 5 MG TABLETS PO SCH (21:14)
[2023-05-31] MEDS: traZODone HCL 100 MG TABLET (FP) PO SCH (21:14)
[2023-05-31] MEDS: THIAMINE HCL 100 MG TABLET (FP) PO SCH (21:14)
[2023-06-01] MEDS: methaDONE 80 MG, methaDONE 10 MG PO SCH (06:33)
[2023-06-01] MEDS: GABAPENTIN 300 MG CAPSULE PO SCH ×3 (06:33→21:14)
[2023-06-01] MEDS: PANTOPRAZOLE 20 MG TABLET PO SCH (10:36)
[2023-06-01] MEDS: PRENATAL VITAMINS W/ FOLIC ACID TABLET (FP) PO SCH (10:36)
[2023-06-01] MEDS: busPIRone HCL 10 MG TABLET (FP) PO SCH ×2 (10:37→21:14)
[2023-06-01] MEDS: NICOTINE POLACRILEX 2 MG GUM BUC PRN ×3 (11:20→19:32)
[2023-06-01] MEDS: hydrOXYzine PAMOATE 25 MG CAPSULE (FP) PO PRN (21:14)
[2023-06-01] MEDS: THIAMINE HCL 100 MG TABLET (FP) PO SCH (21:14)
[2023-06-01] MEDS: traZODone HCL 100 MG TABLET (FP) PO SCH (21:14)
[2023-06-01] MEDS: MELATONIN 5 MG TABLETS PO SCH (21:15)
[2023-06-02] MEDS: methaDONE 80 MG, methaDONE 10 MG PO SCH (06:35)
[2023-06-02] MEDS: GABAPENTIN 300 MG CAPSULE PO SCH ×3 (06:35→21:25)
[2023-06-02] MEDS: busPIRone HCL 10 MG TABLET (FP) PO SCH ×2 (09:53→21:25)
[2023-06-02] MEDS: PRENATAL VITAMINS W/ FOLIC ACID TABLET (FP) PO SCH (09:53)
[2023-06-02] MEDS: PANTOPRAZOLE 20 MG TABLET PO SCH (09:53)
[2023-06-02] MEDS: NICOTINE POLACRILEX 2 MG GUM BUC PRN ×4 (09:54→21:26)
[2023-06-02] MEDS: COLLOIDAL OATMEAL 1 BAR EACH TP PRN (09:56)
[2023-06-02] MEDS: traZODone HCL 100 MG TABLET (FP) PO SCH (21:25)
[2023-06-02] MEDS: THIAMINE HCL 100 MG TABLET (FP) PO SCH (21:25)
[2023-06-02] MEDS: MELATONIN 5 MG TABLETS PO SCH (21:25)
[2023-06-03] MEDS: NICOTINE POLACRILEX 2 MG GUM BUC PRN ×6 (06:19→21:18)
[2023-06-03] MEDS: GABAPENTIN 300 MG CAPSULE PO SCH ×3 (06:19→21:18)
[2023-06-03] MEDS: methaDONE 80 MG, methaDONE 10 MG PO SCH (06:19)
[2023-06-03] MEDS: busPIRone HCL 10 MG TABLET (FP) PO SCH ×2 (10:07→21:18)
[2023-06-03] MEDS: PANTOPRAZOLE 20 MG TABLET PO SCH (10:07)
[2023-06-03] MEDS: PRENATAL VITAMINS W/ FOLIC ACID TABLET (FP) PO SCH (10:07)
[2023-06-03] MEDS: THIAMINE HCL 100 MG TABLET (FP) PO SCH (21:18)
[2023-06-03] MEDS: MELATONIN 5 MG TABLETS PO SCH (21:47)
[2023-06-03] MEDS: traZODone HCL 100 MG TABLET (FP) PO SCH (22:11)
[2023-06-04] MEDS: methaDONE 80 MG, methaDONE 10 MG PO SCH (06:19)
[2023-06-04] MEDS: GABAPENTIN 300 MG CAPSULE PO SCH ×3 (06:19→21:15)
[2023-06-04] MEDS: NICOTINE POLACRILEX 2 MG GUM BUC PRN ×4 (06:19→21:16)
[2023-06-04] MEDS: busPIRone HCL 10 MG TABLET (FP) PO SCH ×2 (09:49→21:15)
[2023-06-04] MEDS: PRENATAL VITAMINS W/ FOLIC ACID TABLET (FP) PO SCH (09:49)
[2023-06-04] MEDS: PANTOPRAZOLE 20 MG TABLET PO SCH (09:49)
[2023-06-04] MEDS: COLLOIDAL OATMEAL 1 BAR EACH TP PRN (10:26)
[2023-06-04] MEDS: THIAMINE HCL 100 MG TABLET (FP) PO SCH (21:15)
[2023-06-04] MEDS: traZODone HCL 100 MG TABLET (FP) PO SCH (21:15)
[2023-06-04] MEDS: MELATONIN 5 MG TABLETS PO SCH (21:15)
[2023-06-05] MEDS: methaDONE 80 MG, methaDONE 10 MG PO SCH (05:58)
[2023-06-05] MEDS: GABAPENTIN 300 MG CAPSULE PO SCH ×3 (05:58→21:13)
[2023-06-05] MEDS: PRENATAL VITAMINS W/ FOLIC ACID TABLET (FP) PO SCH (09:56)
[2023-06-05] MEDS: PANTOPRAZOLE 20 MG TABLET PO SCH (09:56)
[2023-06-05] MEDS: busPIRone HCL 10 MG TABLET (FP) PO SCH ×2 (09:56→21:13)
[2023-06-05] MEDS: NICOTINE POLACRILEX 2 MG GUM BUC PRN ×3 (13:01→20:04)
[2023-06-05] MEDS: MELATONIN 5 MG TABLETS PO SCH (21:13)
[2023-06-05] MEDS: traZODone HCL 100 MG TABLET (FP) PO SCH (21:13)
[2023-06-05] MEDS: THIAMINE HCL 100 MG TABLET (FP) PO SCH (21:13)
[2023-06-06] MEDS: GABAPENTIN 300 MG CAPSULE PO SCH ×3 (06:21→21:01)
[2023-06-06] MEDS: methaDONE 80 MG, methaDONE 10 MG PO SCH (06:21)
[2023-06-06] MEDS: busPIRone HCL 10 MG TABLET (FP) PO SCH ×2 (09:50→21:02)
[2023-06-06] MEDS: PRENATAL VITAMINS W/ FOLIC ACID TABLET (FP) PO SCH (09:50)
[2023-06-06] MEDS: PANTOPRAZOLE 20 MG TABLET PO SCH (09:50)
[2023-06-06] MEDS: NICOTINE POLACRILEX 2 MG GUM BUC PRN ×3 (09:51→21:03)
[2023-06-06] MEDS: THIAMINE HCL 100 MG TABLET (FP) PO SCH (21:01)
[2023-06-06] MEDS: MELATONIN 5 MG TABLETS PO SCH (21:02)
[2023-06-06] MEDS: traZODone HCL 100 MG TABLET (FP) PO SCH (21:02)
[2023-06-07] MEDS: methaDONE 80 MG, methaDONE 10 MG PO SCH (05:57)
[2023-06-07] MEDS: GABAPENTIN 300 MG CAPSULE PO SCH ×3 (05:57→21:17)
[2023-06-07 07:28] VITALS: RESP 18
[2023-06-07] MEDS: PANTOPRAZOLE 20 MG TABLET PO SCH (09:33)
[2023-06-07] MEDS: busPIRone HCL 10 MG TABLET (FP) PO SCH ×2 (09:33→21:17)
[2023-06-07] MEDS: PRENATAL VITAMINS W/ FOLIC ACID TABLET (FP) PO SCH (09:33)
[2023-06-07] MEDS: NICOTINE POLACRILEX 2 MG GUM BUC PRN ×3 (09:34→21:19)
[2023-06-07] MEDS: traZODone HCL 100 MG TABLET (FP) PO SCH (21:17)
[2023-06-07] MEDS: THIAMINE HCL 100 MG TABLET (FP) PO SCH (21:17)
[2023-06-07] MEDS: MELATONIN 5 MG TABLETS PO SCH (21:17)
[2023-06-07] MEDS: hydrOXYzine PAMOATE 25 MG CAPSULE (FP) PO PRN (21:18)
[2023-06-08] MEDS: methaDONE 80 MG, methaDONE 10 MG PO SCH (06:02)
[2023-06-08] MEDS: GABAPENTIN 300 MG CAPSULE PO SCH ×3 (06:02→21:29)
[2023-06-08] MEDS: PANTOPRAZOLE 20 MG TABLET PO SCH (09:07)
[2023-06-08] MEDS: busPIRone HCL 10 MG TABLET (FP) PO SCH ×2 (09:07→21:29)
[2023-06-08] MEDS: PRENATAL VITAMINS W/ FOLIC ACID TABLET (FP) PO SCH (09:07)
[2023-06-08] MEDS: NICOTINE POLACRILEX 2 MG GUM BUC PRN ×3 (09:08→21:30)
[2023-06-08] MEDS: THIAMINE HCL 100 MG TABLET (FP) PO SCH (21:29)
[2023-06-08] MEDS: MELATONIN 5 MG TABLETS PO SCH (21:29)
[2023-06-08] MEDS: traZODone HCL 100 MG TABLET (FP) PO SCH (21:29)
[2023-06-09] MEDS: methaDONE 80 MG, methaDONE 10 MG PO SCH (06:14)
[2023-06-09] MEDS: GABAPENTIN 300 MG CAPSULE PO SCH ×3 (06:15→21:17)
[2023-06-09] MEDS: PRENATAL VITAMINS W/ FOLIC ACID TABLET (FP) PO SCH (09:35)
[2023-06-09] MEDS: NICOTINE POLACRILEX 2 MG GUM BUC PRN ×4 (09:35→21:17)
[2023-06-09] MEDS: busPIRone HCL 10 MG TABLET (FP) PO SCH ×2 (09:35→21:17)
[2023-06-09] MEDS: PANTOPRAZOLE 20 MG TABLET PO SCH (09:35)
[2023-06-09] MEDS: THIAMINE HCL 100 MG TABLET (FP) PO SCH (21:16)
[2023-06-09] MEDS: MELATONIN 5 MG TABLETS PO SCH (21:16)
[2023-06-09] MEDS: traZODone HCL 100 MG TABLET (FP) PO SCH (21:17)
[2023-06-10] MEDS: GABAPENTIN 300 MG CAPSULE PO SCH ×3 (06:20→21:03)
[2023-06-10] MEDS: methaDONE 80 MG, methaDONE 10 MG PO SCH (06:20)
[2023-06-10] MEDS: NICOTINE POLACRILEX 2 MG GUM BUC PRN ×3 (06:21→21:04)
[2023-06-10] MEDS: PRENATAL VITAMINS W/ FOLIC ACID TABLET (FP) PO SCH (09:43)
[2023-06-10] MEDS: PANTOPRAZOLE 20 MG TABLET PO SCH (09:43)
[2023-06-10] MEDS: busPIRone HCL 10 MG TABLET (FP) PO SCH ×2 (09:43→21:03)
[2023-06-10] MEDS: THIAMINE HCL 100 MG TABLET (FP) PO SCH (21:03)
[2023-06-10] MEDS: traZODone HCL 100 MG TABLET (FP) PO SCH (21:03)
[2023-06-10] MEDS: MELATONIN 5 MG TABLETS PO SCH (21:03)
[2023-06-11] MEDS: methaDONE 80 MG, methaDONE 10 MG PO SCH (06:26)
[2023-06-11] MEDS: GABAPENTIN 300 MG CAPSULE PO SCH ×3 (06:26→21:15)
[2023-06-11] MEDS: PRENATAL VITAMINS W/ FOLIC ACID TABLET (FP) PO SCH (09:13)
[2023-06-11] MEDS: PANTOPRAZOLE 20 MG TABLET PO SCH (09:13)
[2023-06-11] MEDS: busPIRone HCL 10 MG TABLET (FP) PO SCH ×2 (09:13→21:15)
[2023-06-11] MEDS: NICOTINE POLACRILEX 2 MG GUM BUC PRN ×3 (09:14→21:15)
[2023-06-11] MEDS: MELATONIN 5 MG TABLETS PO SCH (21:15)
[2023-06-11] MEDS: THIAMINE HCL 100 MG TABLET (FP) PO SCH (21:15)
[2023-06-11] MEDS: traZODone HCL 100 MG TABLET (FP) PO SCH (21:15)
[2023-06-12] MEDS: methaDONE 80 MG, methaDONE 10 MG PO SCH (06:42)
[2023-06-12] MEDS: GABAPENTIN 300 MG CAPSULE PO SCH (06:42)
[2023-06-12] MEDS: NICOTINE POLACRILEX 2 MG GUM BUC PRN ×2 (06:44→09:22)
[2023-06-12 07:34] VITALS: BP 115/66; PULSE 72; TEMP 97.7
[2023-06-12] MEDS: PRENATAL VITAMINS W/ FOLIC ACID TABLET (FP) PO SCH (09:22)
[2023-06-12] MEDS: busPIRone HCL 10 MG TABLET (FP) PO SCH (09:22)
[2023-06-12] MEDS: PANTOPRAZOLE 20 MG TABLET PO SCH (09:22)
== END 2023-06-12 10:10 | disposition home or self-care (01) | DRG 772 ==
LOC: YASAS 12:25 → Y3W 12:26
PROVIDERS: ADMIT Allergy & Immunology; ATTEND Psychiatry & Neurology Pain Medicine
PROC: HZ42ZZZ Group Counseling for Substance Abuse Treatment, Cognitive-Behavioral (ICD-10-PCS; principal; 2023-05-16)
DX: F11.20 Opioid dependence, uncomplicated (principal); F14.20 Cocaine dependence, uncomplicated; F10.20 Alcohol dependence, uncomplicated; F17.210 Nicotine dependence, cigarettes, uncomplicated; F19.282 Other psychoactive substance dependence with psychoactive substance-induced sleep disorder; F19.24 Other psychoactive substance dependence with psychoactive substance-induced mood disorder; F41.8 Other specified anxiety disorders; R20.2 Paresthesia of skin; K21.9 Gastro-esophageal reflux disease without esophagitis; N48.89 Other specified disorders of penis; Z86.19 Personal history of other infectious and parasitic diseases
CPT/HCPCS: 36415; 86803; 87522; 87635

== ENCOUNTER 2023-08-23 11:13 | Inpatient (IN) | payer OTHER ==
[2023-08-23 12:25] VITALS: BMI 28.5
[2023-08-23] MEDS ORDERED: LOPERAMIDE HCL 2 MG CAPSULE PO PRN (13:44)
[2023-08-23] MEDS ORDERED: MAG HYDROX/AL HYDROX/SIMETH 30 ML UNIT-DOSE CUP PO PRN (13:44)
[2023-08-23] MEDS ORDERED: BENZONATATE 200 MG CAPSULE PO PRN (13:44)
[2023-08-23] MEDS ORDERED: BENZOCAINE/MENTHOL (CHLORASEPTIC ) LOZENGE MM PRN (13:44)
[2023-08-23] MEDS ORDERED: MAGNESIUM HYDROX 2400MG/30ML ORAL SUSPENSION 30 ML CUP PO PRN (13:44)
[2023-08-23] MEDS ORDERED: BISMUTH SUBSALICYLATE 262 MG/15 ML BTL PO PRN (13:44)
[2023-08-23] MEDS ORDERED: IBUPROFEN 400 MG TABLET (FP) PO PRN (13:44)
[2023-08-23] MEDS ORDERED: DICYCLOMINE HCL 10 MG CAPSULE PO PRN (13:44)
[2023-08-23] MEDS ORDERED: NALOXONE HCL (KLOXXADO) 8 MG SPRAY NS PRN (13:44)
[2023-08-23] MEDS ORDERED: POLYETHYLENE GLYCOL (HEALTHYLAX) 3350 17 GM PACKET PO PRN (13:44)
[2023-08-23] MEDS ORDERED: guaiFENesin 600 MG TABLET.ER (FP) PO PRN (13:44)
[2023-08-23] MEDS ORDERED: NALOXONE HCL 0.4 MG/ML VIAL IM PRN (13:44)
[2023-08-23] MEDS ORDERED: ONDANSETRON *ODT* 4 MG TABLET SL PRN (13:44)
[2023-08-23] MEDS: NICOTINE 14 MG/24 HOURS TOPICAL PATCH TD SCH (16:18)
[2023-08-23] MEDS: PRENATAL VITAMINS W/ FOLIC ACID TABLET (FP) PO SCH ×2 (16:18→16:26)
[2023-08-23] MEDS: chlordiazePOXIDE HCL 25 MG CAPSULE PO SCH ×2 (16:18→22:08)
[2023-08-23] MEDS: METHOCARBAMOL 500 MG TABLET PO PRN ×2 (16:19→22:09)
[2023-08-23] MEDS ORDERED: chlordiazePOXIDE HCL 25 MG CAPSULE ONE (16:21)
[2023-08-23] MEDS ORDERED: METHOCARBAMOL 500 MG TABLET ONE (16:22)
[2023-08-23] MEDS ORDERED: PRENATAL VITAMINS W/ FOLIC ACID TABLET (FP) PO ONE (16:22)
[2023-08-23] MEDS ORDERED: NICOTINE 14 MG/24 HOURS TOPICAL PATCH TD ONE (16:22)
[2023-08-23] MEDS: chlordiazePOXIDE HCL 25 MG CAPSULE PO PRN (19:47)
[2023-08-23] MEDS: MELATONIN 5 MG TABLETS PO SCH (22:08)
[2023-08-23] MEDS: THIAMINE HCL 100 MG TABLET (FP) PO SCH (22:08)
[2023-08-23] MEDS: hydrOXYzine PAMOATE 25 MG CAPSULE (FP) PO PRN (22:09)
[2023-08-24] MEDS: chlordiazePOXIDE HCL 25 MG CAPSULE PO SCH ×4 (04:30→22:40)
[2023-08-24] MEDS ORDERED: methaDONE HCL 10 MG TABLET PO SCH (09:15)
[2023-08-24] MEDS ORDERED: methaDONE HCL 10 MG TABLET PO ONE ×2 (09:33→14:30)
[2023-08-24 10:21] LABS: HEMATOCRIT 39.3 % (35.4-49); MCH 30.8 pg (25.7-33.7); MCHC 33.1 g/dl (32.0-35.9); MEAN CELL VOLUME 92.9 fl (80-96); MEAN PLT VOLUME 9.1 fl (7.5-11.1); PLATELET COUNT 224 10^3/uL (134-434); RBC 4.23 M/mm3 (4.00-5.60); RDW 13.6 % (11.9-15.9); WHITE BLOOD COUNT 5.3 K/mm3 (4.0-10.0)
[2023-08-24] MEDS: PRENATAL VITAMINS W/ FOLIC ACID TABLET (FP) PO SCH (10:22)
[2023-08-24] MEDS: METHOCARBAMOL 500 MG TABLET PO PRN (10:26)
[2023-08-24] MEDS: NICOTINE 14 MG/24 HOURS TOPICAL PATCH TD SCH (10:47)
[2023-08-24 11:53] LABS: CREATININE 1.1 mg/dL (0.55-1.3)
[2023-08-24 11:55] LABS: BILIRUBIN,TOTAL 0.2 mg/dL (0.2-1); TOT PROT 6.3 g/dl (6.4-8.2)
[2023-08-24] MEDS ORDERED: methaDONE HCL 10 MG TABLET (FOR DETOX USE ONLY) PO ONE (14:26)
[2023-08-24] MEDS: hydrOXYzine PAMOATE 25 MG CAPSULE (FP) PO PRN (14:28)
[2023-08-24] MEDS: chlordiazePOXIDE HCL 25 MG CAPSULE PO PRN (14:29)
[2023-08-24] MEDS: IBUPROFEN 600 MG TABLET (FP) PO PRN (14:32)
[2023-08-24] MEDS ORDERED: QUEtiapine FUMARATE 50 MG TABLET PO SCH (22:00)
[2023-08-24] MEDS ORDERED: traZODone HCL 100 MG TABLET (FP) PO SCH (22:00)
[2023-08-24] MEDS: MELATONIN 5 MG TABLETS PO SCH (22:39)
[2023-08-24] MEDS: THIAMINE HCL 100 MG TABLET (FP) PO SCH (22:39)
[2023-08-24] MEDS: traZODone HCL 50 MG TABLET (FP) PO SCH (22:39)
[2023-08-25] MEDS: methaDONE HCL 10 MG TABLET PO SCH (05:26)
[2023-08-25] MEDS: chlordiazePOXIDE HCL 25 MG CAPSULE PO SCH ×4 (05:26→22:19)
[2023-08-25] MEDS ORDERED: QUEtiapine FUMARATE 50 MG TABLET PO SCH (10:00)
[2023-08-25] MEDS: PRENATAL VITAMINS W/ FOLIC ACID TABLET (FP) PO SCH (10:12)
[2023-08-25] MEDS: NICOTINE 14 MG/24 HOURS TOPICAL PATCH TD SCH (10:12)
[2023-08-25] MEDS: ACETAMINOPHEN 325 MG TABLET (FP) PO PRN ×2 (15:18→23:01)
[2023-08-25] MEDS: METHOCARBAMOL 500 MG TABLET PO PRN (17:45)
[2023-08-25] MEDS: THIAMINE HCL 100 MG TABLET (FP) PO SCH (22:19)
[2023-08-25] MEDS: traZODone HCL 50 MG TABLET (FP) PO SCH (22:19)
[2023-08-25] MEDS: MELATONIN 5 MG TABLETS PO SCH (22:19)
[2023-08-25] MEDS: hydrOXYzine PAMOATE 25 MG CAPSULE (FP) PO PRN (23:01)
[2023-08-26] MEDS ORDERED: chlordiazePOXIDE HCL 10 MG CAPSULE PO PRN
[2023-08-26] MEDS: chlordiazePOXIDE HCL 10 MG CAPSULE PO SCH ×4 (05:59→22:25)
[2023-08-26] MEDS: methaDONE HCL 10 MG TABLET PO SCH (06:15)
[2023-08-26] MEDS: PRENATAL VITAMINS W/ FOLIC ACID TABLET (FP) PO SCH (10:13)
[2023-08-26] MEDS: NICOTINE 14 MG/24 HOURS TOPICAL PATCH TD SCH (10:14)
[2023-08-26] MEDS: ACETAMINOPHEN 325 MG TABLET (FP) PO PRN (16:43)
[2023-08-26] MEDS: MELATONIN 5 MG TABLETS PO SCH (22:24)
[2023-08-26] MEDS: THIAMINE HCL 100 MG TABLET (FP) PO SCH (22:24)
[2023-08-26] MEDS: traZODone HCL 50 MG TABLET (FP) PO SCH (22:24)
[2023-08-27] MEDS: ACETAMINOPHEN 325 MG TABLET (FP) PO PRN (04:01)
[2023-08-27] MEDS ORDERED: chlordiazePOXIDE HCL 10 MG CAPSULE PO SCH (05:00)
[2023-08-27] MEDS: methaDONE HCL 10 MG TABLET PO SCH (05:33)
[2023-08-27] MEDS: METHOCARBAMOL 500 MG TABLET PO PRN (05:34)
[2023-08-27] MEDS: IBUPROFEN 600 MG TABLET (FP) PO PRN (05:34)
[2023-08-27] MEDS: PRENATAL VITAMINS W/ FOLIC ACID TABLET (FP) PO SCH (09:28)
[2023-08-27] MEDS: NICOTINE 14 MG/24 HOURS TOPICAL PATCH TD SCH (09:28)
[2023-08-27 12:54] VITALS: BP 92/60; PULSE 90; RESP 16; TEMP 97.6
[2023-08-28] MEDS ORDERED: chlordiazePOXIDE HCL 10 MG CAPSULE PO ONE (05:00)
== END 2023-08-27 14:39 | disposition home or self-care (01) | DRG 773 ==
LOC: YASAS 11:13 → Y3N 16:08
PROVIDERS: ADMIT Allergy & Immunology; ATTEND Surgery
PROC: HZ2ZZZZ Detoxification Services for Substance Abuse Treatment (ICD-10-PCS; principal; 2023-08-23)
DX: F10.230 Alcohol dependence with withdrawal, uncomplicated (principal); F11.20 Opioid dependence, uncomplicated; F14.20 Cocaine dependence, uncomplicated; F17.210 Nicotine dependence, cigarettes, uncomplicated; F19.24 Other psychoactive substance dependence with psychoactive substance-induced mood disorder; F41.8 Other specified anxiety disorders; G47.00 Insomnia, unspecified; Z59.02 Unsheltered homelessness; Z56.0 Unemployment, unspecified
CPT/HCPCS: 0241U-QW; 36415; 80053; 80307; 83036; 85027; 86780; 87635; 93005; 93010

== ENCOUNTER 2023-09-19 11:19 | Inpatient (IN) | payer OTHER ==
[2023-09-19 11:34] VITALS: BMI 27.0
[2023-09-19] MEDS ORDERED: NALOXONE HCL 0.4 MG/ML VIAL IM PRN (13:14)
[2023-09-19] MEDS ORDERED: BENZONATATE 200 MG CAPSULE PO PRN (13:14)
[2023-09-19] MEDS ORDERED: POLYETHYLENE GLYCOL (HEALTHYLAX) 3350 17 GM PACKET PO PRN (13:14)
[2023-09-19] MEDS ORDERED: NALOXONE HCL (KLOXXADO) 8 MG SPRAY NS PRN (13:14)
[2023-09-19] MEDS ORDERED: DICYCLOMINE HCL 10 MG CAPSULE PO PRN (13:14)
[2023-09-19] MEDS ORDERED: BENZOCAINE/MENTHOL (CHLORASEPTIC ) LOZENGE MM PRN (13:14)
[2023-09-19] MEDS ORDERED: guaiFENesin 600 MG TABLET.ER (FP) PO PRN (13:14)
[2023-09-19] MEDS ORDERED: MAG HYDROX/AL HYDROX/SIMETH 30 ML UNIT-DOSE CUP PO PRN (13:14)
[2023-09-19] MEDS ORDERED: ACETAMINOPHEN 325 MG TABLET (FP) PO PRN (13:14)
[2023-09-19] MEDS ORDERED: MAGNESIUM HYDROX 2400MG/30ML ORAL SUSPENSION 30 ML CUP PO PRN (13:14)
[2023-09-19] MEDS ORDERED: IBUPROFEN 400 MG TABLET (FP) PO PRN (13:14)
[2023-09-19] MEDS ORDERED: LOPERAMIDE HCL 2 MG CAPSULE PO PRN (13:14)
[2023-09-19] MEDS ORDERED: ONDANSETRON *ODT* 4 MG TABLET SL PRN (13:14)
[2023-09-19] MEDS ORDERED: BISMUTH SUBSALICYLATE 524 MG/30 ML PO PRN (13:14)
[2023-09-19] MEDS ORDERED: diazePAM 5 MG TABLET PO ONE (13:45)
[2023-09-19] MEDS ORDERED: diazePAM 5 MG TABLET ONE (13:46)
[2023-09-19] MEDS ORDERED: PRENATAL VITAMINS W/ FOLIC ACID TABLET (FP) PO ONE (13:46)
[2023-09-19] MEDS: PRENATAL VITAMINS W/ FOLIC ACID TABLET (FP) PO SCH (13:50)
[2023-09-19] MEDS: diazePAM 5 MG TABLET PO SCH ×2 (17:27→22:31)
[2023-09-19] MEDS: METHOCARBAMOL 500 MG TABLET PO PRN (20:32)
[2023-09-19] MEDS: IBUPROFEN 600 MG TABLET (FP) PO PRN (20:32)
[2023-09-19] MEDS: diazePAM 5 MG TABLET PO PRN (20:33)
[2023-09-19] MEDS: MELATONIN 5 MG TABLETS PO SCH (22:28)
[2023-09-19] MEDS: THIAMINE HCL 100 MG TABLET (FP) PO SCH (22:28)
[2023-09-19] MEDS: hydrOXYzine PAMOATE 25 MG CAPSULE (FP) PO PRN (22:28)
[2023-09-20] MEDS: methaDONE 40 MG, methaDONE 20 MG PO SCH (05:53)
[2023-09-20] MEDS: diazePAM 5 MG TABLET PO SCH ×2 (05:53→10:13)
[2023-09-20] MEDS ORDERED: methaDONE HCL 10 MG TABLET PO SCH (06:00)
[2023-09-20] MEDS: PRENATAL VITAMINS W/ FOLIC ACID TABLET (FP) PO SCH (10:13)
[2023-09-20] MEDS: NICOTINE 14 MG/24 HOURS TOPICAL PATCH TD SCH (10:13)
[2023-09-20 11:32] LABS: HEMATOCRIT 44.1 % (35.4-49); HEMOGLOBIN 14.5 GM/dL (11.7-16.9); MCH 30.5 pg (25.7-33.7); MCHC 32.8 g/dl (32.0-35.9); MEAN PLT VOLUME 8.5 fl (7.5-11.1); PLATELET COUNT 276 10^3/uL (134-434); RBC 4.74 M/mm3 (4.00-5.60); RDW 13.9 % (11.9-15.9); WHITE BLOOD COUNT 4.4 K/mm3 (4.0-10.0)
[2023-09-20 11:39] LABS: POTASSIUM 5.3 mmol/L (3.5-5.1)
[2023-09-20 11:41] LABS: CALCIUM 9.5 mg/dL (8.5-10.1)
[2023-09-20 11:42] LABS: ALBUMIN 3.5 g/dl (3.4-5.0); BLOOD UREA NITROGEN 13.8 mg/dL (7-18)
[2023-09-20 11:45] LABS: CREATININE 1.2 mg/dL (0.55-1.3)
[2023-09-20 11:46] LABS: BILIRUBIN,TOTAL 0.8 mg/dL (0.2-1); TOT PROT 7.3 g/dl (6.4-8.2)
[2023-09-20] MEDS: diazePAM 5 MG TABLET PO PRN (13:44)
[2023-09-20] MEDS: LACTULOSE 20 GM/30 ML UDC (FOR ORAL USE ONLY) PO SCH ×2 (15:07→22:30)
[2023-09-20] MEDS: chlordiazePOXIDE HCL 25 MG CAPSULE PO SCH ×2 (17:28→22:31)
[2023-09-20] MEDS: IBUPROFEN 600 MG TABLET (FP) PO PRN (20:11)
[2023-09-20] MEDS: chlordiazePOXIDE HCL 25 MG CAPSULE PO PRN (20:12)
[2023-09-20] MEDS: hydrOXYzine PAMOATE 25 MG CAPSULE (FP) PO PRN (20:13)
[2023-09-20] MEDS: GABAPENTIN 300 MG CAPSULE PO SCH (22:30)
[2023-09-20] MEDS: MELATONIN 5 MG TABLETS PO SCH (22:30)
[2023-09-20] MEDS: traZODone HCL 100 MG TABLET (FP) PO SCH (22:30)
[2023-09-20] MEDS: THIAMINE HCL 100 MG TABLET (FP) PO SCH (22:30)
[2023-09-21] MEDS: chlordiazePOXIDE HCL 25 MG CAPSULE PO SCH ×4 (05:43→22:21)
[2023-09-21] MEDS: GABAPENTIN 300 MG CAPSULE PO SCH ×3 (05:43→22:21)
[2023-09-21] MEDS: methaDONE 40 MG, methaDONE 20 MG PO SCH (05:43)
[2023-09-21] MEDS: LACTULOSE 20 GM/30 ML UDC (FOR ORAL USE ONLY) PO SCH ×4 (05:43→22:22)
[2023-09-21] MEDS ORDERED: diazePAM 5 MG TABLET PO SCH (06:00)
[2023-09-21] MEDS: NICOTINE 14 MG/24 HOURS TOPICAL PATCH TD SCH (10:29)
[2023-09-21] MEDS: PRENATAL VITAMINS W/ FOLIC ACID TABLET (FP) PO SCH (10:29)
[2023-09-21 10:54] LABS: CALCIUM 8.6 mg/dL (8.5-10.1)
[2023-09-21 10:55] LABS: BLOOD UREA NITROGEN 19.2 mg/dL (7-18)
[2023-09-21] MEDS: hydrOXYzine PAMOATE 25 MG CAPSULE (FP) PO PRN (14:38)
[2023-09-21] MEDS: chlordiazePOXIDE HCL 25 MG CAPSULE PO PRN (14:39)
[2023-09-21] MEDS: THIAMINE HCL 100 MG TABLET (FP) PO SCH (22:21)
[2023-09-21] MEDS: traZODone HCL 100 MG TABLET (FP) PO SCH (22:21)
[2023-09-21] MEDS: MELATONIN 5 MG TABLETS PO SCH (22:21)
[2023-09-22] MEDS ORDERED: chlordiazePOXIDE HCL 10 MG CAPSULE PO PRN
[2023-09-22] MEDS: methaDONE 40 MG, methaDONE 20 MG PO SCH (05:25)
[2023-09-22] MEDS: LACTULOSE 20 GM/30 ML UDC (FOR ORAL USE ONLY) PO SCH ×2 (05:25→13:30)
[2023-09-22] MEDS: chlordiazePOXIDE HCL 10 MG CAPSULE PO SCH ×2 (05:26→10:12)
[2023-09-22] MEDS: GABAPENTIN 300 MG CAPSULE PO SCH ×2 (05:28→13:31)
[2023-09-22] MEDS ORDERED: diazePAM 5 MG TABLET PO SCH (06:00)
[2023-09-22] MEDS: PRENATAL VITAMINS W/ FOLIC ACID TABLET (FP) PO SCH (10:12)
[2023-09-22] MEDS: NICOTINE 14 MG/24 HOURS TOPICAL PATCH TD SCH (10:12)
[2023-09-22] MEDS: hydrOXYzine PAMOATE 25 MG CAPSULE (FP) PO PRN (10:13)
[2023-09-22] MEDS: METHOCARBAMOL 500 MG TABLET PO PRN (10:13)
[2023-09-22 13:07] VITALS: BP 101/60; PULSE 71; RESP 17; TEMP 97.9
[2023-09-23] MEDS ORDERED: chlordiazePOXIDE HCL 10 MG CAPSULE PO SCH (05:00)
[2023-09-23] MEDS ORDERED: diazePAM 5 MG TABLET PO ONE (06:00)
[2023-09-24] MEDS ORDERED: chlordiazePOXIDE HCL 10 MG CAPSULE PO ONE (05:00)
== END 2023-09-22 16:25 | disposition left against medical advice (07) | DRG 770 ==
LOC: YASAS 11:19 → Y3N 13:36
PROVIDERS: ADMIT Allergy & Immunology; ATTEND Allergy & Immunology
PROC: HZ2ZZZZ Detoxification Services for Substance Abuse Treatment (ICD-10-PCS; principal; 2023-09-19)
DX: F10.230 Alcohol dependence with withdrawal, uncomplicated (principal); F12.20 Cannabis dependence, uncomplicated; F14.20 Cocaine dependence, uncomplicated; F17.210 Nicotine dependence, cigarettes, uncomplicated; F19.24 Other psychoactive substance dependence with psychoactive substance-induced mood disorder; F41.8 Other specified anxiety disorders; E72.20 Disorder of urea cycle metabolism, unspecified; E87.5 Hyperkalemia; G47.00 Insomnia, unspecified; Z86.59 Personal history of other mental and behavioral disorders; Z86.19 Personal history of other infectious and parasitic diseases; Z59.01 Sheltered homelessness; Z56.0 Unemployment, unspecified
CPT/HCPCS: 36415; 80048; 80053; 80307; 82140; 85027; 86780; 87635; 87811; 93005; 93010

== ENCOUNTER 2024-08-13 15:45 | Inpatient (IN) | payer OTHER ==
[2024-08-13 17:16] VITALS: BMI 24.3
[2024-08-13] MEDS ORDERED: MAGNESIUM HYDROX 2400MG/30ML ORAL SUSPENSION 30 ML CUP PO PRN (17:45)
[2024-08-13] MEDS ORDERED: ACETAMINOPHEN 325 MG TABLET (FP) PO PRN (17:45)
[2024-08-13] MEDS ORDERED: NALOXONE (NARCAN) HCL 4 MG/0.1 ML SPRAY NS PRN (17:45)
[2024-08-13] MEDS ORDERED: POLYETHYLENE GLYCOL (HEALTHYLAX) 3350 17 GM PACKET PO PRN (17:45)
[2024-08-13] MEDS ORDERED: BENZONATATE 200 MG CAPSULE PO PRN (17:45)
[2024-08-13] MEDS ORDERED: IBUPROFEN 400 MG TABLET (FP) PO PRN (17:45)
[2024-08-13] MEDS ORDERED: ONDANSETRON *ODT* 4 MG TABLET SL PRN (17:45)
[2024-08-13] MEDS ORDERED: BISMUTH SUBSALICYLATE 524 MG/30 ML PO PRN (17:45)
[2024-08-13] MEDS ORDERED: DICYCLOMINE HCL 10 MG CAPSULE PO PRN (17:45)
[2024-08-13] MEDS ORDERED: NICOTINE POLACRILEX 2 MG LOZENGE BC PRN (17:45)
[2024-08-13] MEDS ORDERED: guaiFENesin 600 MG TABLET.ER (FP) PO PRN (17:45)
[2024-08-13] MEDS ORDERED: P-EPHED 60MG/TRIPROLIDI 2.5MG TABLET PO PRN (17:45)
[2024-08-13] MEDS ORDERED: BENZOCAINE/MENTHOL (CHLORASEPTIC ) LOZENGE MM PRN (17:45)
[2024-08-13] MEDS ORDERED: chlordiazePOXIDE HCL 25 MG CAPSULE ONE (19:53)
[2024-08-13] MEDS ORDERED: methaDONE HCL 10 MG TABLET (FOR DETOX USE ONLY) ONE (19:54)
[2024-08-13] MEDS: chlordiazePOXIDE HCL 25 MG CAPSULE PO ONE ×2 (19:57→19:58)
[2024-08-13] MEDS: methaDONE HCL 10 MG TABLET PO ONE (19:58)
[2024-08-13] MEDS: IBUPROFEN 600 MG TABLET (FP) PO PRN (19:58)
[2024-08-13] MEDS ORDERED: IBUPROFEN 600 MG TABLET (FP) PO ONE (20:00)
[2024-08-14] MEDS: THIAMINE 100 MG TABLET PO SCH (00:13)
[2024-08-14] MEDS: MELATONIN 5 MG TABLETS PO SCH (00:13)
[2024-08-14] MEDS: chlordiazePOXIDE HCL 25 MG CAPSULE PO SCH (00:14)
[2024-08-14] MEDS ORDERED: chlordiazePOXIDE HCL 25 MG CAPSULE ONE ×3 (00:16→10:03)
[2024-08-14] MEDS ORDERED: MELATONIN 5 MG TABLETS ONE (00:17)
[2024-08-14] MEDS: methaDONE HCL 40 MG DISPERSABLE TABLET PO ONE (10:03)
[2024-08-14] MEDS: PRENATAL VITAMINS W/ FOLIC ACID TABLET (FP) PO SCH (10:03)
[2024-08-14] MEDS ORDERED: methaDONE HCL 10 MG TABLET (FOR DETOX USE ONLY) ONE (10:03)
[2024-08-14] MEDS ORDERED: PRENATAL VITAMINS W/ FOLIC ACID TABLET (FP) PO ONE (10:04)
[2024-08-14 11:15] LABS: HEMATOCRIT 39.6 % (35.4-49); HEMOGLOBIN 13.4 GM/dL (11.7-16.9); MCH 31.5 pg (25.7-33.7); MCHC 33.8 g/dl (32.0-35.9); PLATELET COUNT 268 10^3/uL (134-434); RBC 4.26 M/mm3 (4.00-5.60); RDW 14.4 % (11.9-15.9); WHITE BLOOD COUNT 5.7 K/mm3 (4.0-10.0)
[2024-08-14] MEDS: MAG HYDROX/AL HYDROX/SIMETH 30 ML UNIT-DOSE CUP PO PRN (11:44)
[2024-08-14 11:53] LABS: CHLORIDE 110 mmol/L (98-107); SODIUM 141 mmol/L (136-145)
[2024-08-14 11:59] LABS: CALCIUM 8.5 mg/dL (8.5-10.1)
[2024-08-14 12:00] LABS: ALBUMIN 2.8 g/dl (3.4-5.0); ANION GAP 5 mmol/L (4-13); BLOOD UREA NITROGEN 23.7 mg/dL (7-18); CO2 26 mmol/L (21-32); GLUCOSE,RANDOM 117 mg/dL (74-106)
[2024-08-14 12:03] LABS: CREATININE 1.1 mg/dL (0.55-1.3); SGOT/AST 24 U/L (15-37); SGPT/ALT 24 U/L (13-61)
[2024-08-14 12:04] LABS: BILIRUBIN,TOTAL 0.2 mg/dL (0.2-1); TOT PROT 5.7 g/dl (6.4-8.2)
[2024-08-14 12:06] LABS: ALK PHOS 122 U/L (45-117)
[2024-08-14] MEDS: hydrOXYzine PAMOATE 25 MG CAPSULE (FP) PO ONE (13:16)
[2024-08-14] MEDS: cloNIDine HCL 0.1 MG TABLET PO PRN (13:16)
[2024-08-14] MEDS: SUVOREXANT 10 MG TABLET PO PRN (22:29)
[2024-08-15] MEDS: chlordiazePOXIDE HCL 25 MG CAPSULE PO SCH (05:34)
[2024-08-15] MEDS: METHOCARBAMOL 500 MG TABLET PO PRN (09:25)
[2024-08-15] MEDS: LOPERAMIDE HCL 2 MG CAPSULE PO PRN (09:25)
[2024-08-15] MEDS: methaDONE HCL 40 MG DISPERSABLE TABLET PO ONE (09:25)
[2024-08-15] MEDS: GABAPENTIN 300 MG CAPSULE PO SCH (13:24)
[2024-08-15] MEDS: chlordiazePOXIDE HCL 25 MG CAPSULE PO PRN (13:24)
[2024-08-15] MEDS: hydrOXYzine PAMOATE 25 MG CAPSULE (FP) PO ONE (13:24)
[2024-08-16] MEDS ORDERED: chlordiazePOXIDE HCL 10 MG CAPSULE PO PRN
[2024-08-16] MEDS: chlordiazePOXIDE HCL 10 MG CAPSULE PO SCH (05:51)
[2024-08-16] MEDS ORDERED: methaDONE HCL 40 MG DISPERSABLE TABLET PO ONE (10:00)
[2024-08-16] MEDS: NICOTINE POLACRILEX 2 MG GUM BUC PRN (10:40)
[2024-08-17] MEDS: chlordiazePOXIDE HCL 10 MG CAPSULE PO SCH (06:00)
[2024-08-17] MEDS: chlordiazePOXIDE HCL 10 MG CAPSULE PO ONE (08:42)
[2024-08-17] MEDS ORDERED: methaDONE HCL 40 MG DISPERSABLE TABLET PO ONE (10:00)
[2024-08-17] MEDS: methaDONE 40 MG, methaDONE 10 MG PO ONE (10:21)
[2024-08-17] MEDS: PANTOPRAZOLE 40 MG TABLET PO SCH (11:00)
[2024-08-17] MEDS: hydrOXYzine PAMOATE 50 MG CAPSULE (FP) PO PRN (17:43)
[2024-08-17] MEDS: GABAPENTIN 400 MG CAPSULE PO SCH (22:26)
[2024-08-17] MEDS: SUVOREXANT 10 MG TABLET PO PRN (22:26)
[2024-08-18] MEDS: methaDONE 40 MG, methaDONE 10 MG PO ONE (05:53)
[2024-08-18] MEDS: chlordiazePOXIDE HCL 10 MG CAPSULE PO ONE (05:53)
[2024-08-18] MEDS ORDERED: methaDONE HCL 10 MG TABLET PO ONE (06:00)
[2024-08-18] MEDS: NALOXONE (NYS OPIOID OVERDOSE PROGRAM) 4 MG/0.1 ML SPRAY NS SCH (08:52)
[2024-08-18 09:16] VITALS: BP 117/87; PULSE 94; RESP 17; TEMP 98.1
== END 2024-08-18 10:11 | disposition home or self-care (01) | DRG 773 ==
LOC: YASAS 15:45 → Y6N 08-14 11:14
PROVIDERS: ADMIT Allergy & Immunology; ATTEND Surgery
PROC: HZ2ZZZZ Detoxification Services for Substance Abuse Treatment (ICD-10-PCS; principal; 2024-08-14)
DX: F10.230 Alcohol dependence with withdrawal, uncomplicated (principal); F11.20 Opioid dependence, uncomplicated; F14.20 Cocaine dependence, uncomplicated; F17.210 Nicotine dependence, cigarettes, uncomplicated; F19.280 Other psychoactive substance dependence with psychoactive substance-induced anxiety disorder; F19.282 Other psychoactive substance dependence with psychoactive substance-induced sleep disorder; F41.1 Generalized anxiety disorder; B18.2 Chronic viral hepatitis C
CPT/HCPCS: 36415; 73610-TC-RT-FY; 80053; 80307; 85027; 86780